=== PATIENT | female | born 1940 | race Two or more races ===

== ENCOUNTER 2017-04-06 00:37 | Inpatient (IN) | payer MEDICARE, MEDICAID ==
[~2017-04-06] VITALS: Ht 152.4 cm; Wt 124.7 kg
--- NOTE | 2017-04-06 03:30 | NUR ---
TELE/RN NOTES: PT. IS A DIRECT ADMIT FROM [place] [facility] AT 0315. A/O X 2-3. W/ LEFT SIDE FACIAL DROPPING AND SLURRED SPEECH NOTED. W/ LEFT SIDE WEAKNESS NOTED. HAS SL ON LWRIST PATENT AND INTACT W/ NO S/S OF INFECTION/INFILTRATION NOTED. W/ F/C PATENT AND INTACT DRAINING CLEAR YELLOW URINE. NOTED REDNESS UNDER THE LEFT BREAST AND PERINEAL AREA. HAS A LARGE BM LOOSE. CALLED ENERGY CONTROL OFFICER AUDREY FOR ORDERS. DENIES ANY C/O CHEST PAIN OR SOB AT THIS TIME. CALL LIGHT W/REACH. SAFETY AND ASPIRATION PRECAUTION MAINTAINED. WILL CONTINUE TO OBSERVE.
--- NOTE | 2017-04-06 03:30 | NUR ---
PT. ON TELE MONITOR W/ AFIB.
[2017-04-06 03:35] VITALS: BP 166/82
[2017-04-06 04:36] VITALS: BP 166/82
[2017-04-06] MEDS ORDERED: ZOLPIDEM TARTRATE 5 MG TABLET PO PRN (05:30)
[2017-04-06] MEDS ORDERED: ENOXAPARIN SODIUM 40 MG/0.4 ML DISP.SYRIN SQ SCH (05:30)
[2017-04-06] MEDS ORDERED: MAGNESIUM HYDROXIDE 30 ML UDC PO PRN (05:30)
[2017-04-06] MEDS ORDERED: ACETAMINOPHEN 325 MG TABLET PO PRN (05:30)
[2017-04-06] MEDS ORDERED: ONDANSETRON HCL/PF 4 MG/2 ML VIAL IVP PRN (05:30)
[2017-04-06] MEDS ORDERED: Z GUARD REMEDY 2 OZ OINT TP PRN (05:30)
[2017-04-06] MEDS ORDERED: ENOXAPARIN SODIUM 40 MG/0.4 ML DISP.SYRIN SQ ONE (05:52)
[2017-04-06] MEDS: IV NS 0.9% 1,000 ML IV PRN ×2 (06:08→21:02)
[2017-04-06] MEDS ORDERED: MORPHINE SULFATE INJ 2 MG/ML DISP.SYRIN ONE (06:15)
[2017-04-06] MEDS: MORPHINE SULFATE INJ 2 MG/ML DISP.SYRIN IV PRN ×2 (06:15→20:07)
[2017-04-06 08:00] VITALS: BP 147/65
--- NOTE | 2017-04-06 08:00 | NUR ---
TELE/RN NOTES: RECEIVED PT. IN BED A/O X 2-3. VERBALLY RESPONSIVE. ABLE TO MAKE NEEDS KNOWN. W/ LEFT SIDE WEAKNESS, FACIAL DROPPING, SLURRED SPEECH NOTED. W/ IVF GOING VIA LWRIST W/ NO S/S OF INFECTION/INFILTRATION NOTED. W/ F/C PATENT AND INTACT DRAINING VIA GRAVITY CLEAR YELLOW URINE. CALL LIGHT W/ REACH. ALL NEEDS MEET AND ATTENDED. SAFETY/ASPIRATION PRECAUTION MAINTAINED.
[2017-04-06 08:25] LABS: BASOPHILS # (AUTO) 0.1 /CMM (0.0-0.2); BASOPHILS % (AUTO) 0.8 % (0.0-2.0); EOSINOPHILS # (AUTO) 0.1 /CMM (0.0-0.7); EOSINOPHILS % (AUTO) 0.7 % (0.0-6.0); HEMATOCRIT 44 % (33-45); HEMOGLOBIN 14.9 g/dL (11.5-14.8); LYMPHOCYTES % (AUTO) 13.9 % (20.0-44.0); MEAN CORPUSCULAR HEMOGLOBIN 30 PG (26.0-33.0); MEAN CORPUSCULAR HGB CONC 34 g/dl (31.0-36.0); MEAN CORPUSCULAR VOLUME 90 fL (82-100); MONOCYTES # (AUTO) 0.3 /CMM (0.1-1.30); MONOCYTES % (AUTO) 4.7 % (2.0-12.0); NEUTROPHILS # (AUTO) 5.8 /CMM (1.8-8.9); NEUTROPHILS % (AUTO) 79.9 % (43.0-81.0); PLATELET COUNT (AUTO) 196 /CMM (150-450); RDW COEFFICIENT OF VARIATION 12.1 (11.5-15.0); WHITE BLOOD COUNT (AUTO) 7.3 K/uL (4.3-11.0)
[2017-04-06 09:07] LABS: B-TYPE NATRIURETIC PEPTIDE 1414 PG/ML (0-125); CALCIUM, SERUM 8.7 mg/dL (8.5-10.1); CARBON DIOXIDE 24 mmol/L (21-32); CHLORIDE 106 mmol/L (98-107); CREATININE 0.9 mg/dL (0.6-1.3); GLUCOSE 120 mg/dL (74-106); MAGNESIUM 1.7 mg/dL (1.8-2.4); PHOSPHORUS 2.9 mg/dL (2.5-4.9); POTASSIUM 3.6 mmol/L (3.5-5.1); SODIUM SERUM 144 mmol/L (136-145); UREA NITROGEN, BLOOD 12 mg/dL (7-18)
[2017-04-06] MEDS: CEFTRIAXONE 1 G in IV D5W 50 ML IV SCH (10:26)
--- NOTE | 2017-04-06 19:24 | NUR ---
TELE/RN NOTES: PT. IN BED RESTING NOT IN ANY DISTRESS. NO SIGNIFICANT CHANGES NOTED THIS SHIFT. REPORT GIVEN TO NEXT SHIFT NURSE.
--- NOTE | 2017-04-06 19:30 | NUR ---
Received patient in the bed.No unusual signs or symptoms observed or reported,no signs of discomfort or distress.Reported pain on left leg
--- NOTE | 2017-04-06 20:00 | NUR ---
Medicated patient with Morphine Sulfate 2m ivp,as per Md's order,no problems
[2017-04-06 22:12] VITALS: BP 125/56
[2017-04-06] MEDS: ATORVASTATIN 10 MG TABLET PO SCH (22:58)
[2017-04-07] MEDS: MORPHINE SULFATE INJ 2 MG/ML DISP.SYRIN IV PRN ×3 (01:03→04:51)
--- NOTE | 2017-04-07 01:05 | NUR ---
Reported pain and patient is restless and irritable,medicated with Morphine Sulfate 2 mg ivp,no problems.
--- NOTE | 2017-04-07 03:00 | NUR ---
no problems except for c/o pain
[2017-04-07] MEDS ORDERED: ENOXAPARIN SODIUM 80 MG/0.8 ML DISP.SYRIN SQ ONE (05:35)
[2017-04-07] MEDS ORDERED: ENOXAPARIN SODIUM 40 MG/0.4 ML DISP.SYRIN SQ ONE (05:35)
[2017-04-07] MEDS: ENOXAPARIN SODIUM 60 MG/0.6 ML DISP.SYRIN SQ SCH ×3 (05:48→21:14)
--- NOTE | 2017-04-07 06:51 | NUR ---
resting quietly,no problems
--- NOTE | 2017-04-07 07:10 | NUR ---
RN INITIAL NOTE PATIENT RECEIVED IN BED, RESTING, EASILY AROUSED. NO S/S OF PAIN OR DISCOMFORT. RESPIRATIONS ARE EVEN AND UNLABORED. NO S/S OF RESPIRATORY DISTRESS OR SOB. SKIN IS WARM AND DRY TO TOUCH. SINUS RHYTHM ON TELE MONITOR. IV SITE FLUSHED, PATENT. SAFETY PRECAUTIONS IMPLEMENTED, BED IN LOCKED, LOW POSITION WITH TWO SIDE RAILS UP. CALL LIGHT AND BELONGINGS WITHIN EASY REACH. WILL CONTINUE TO MONITOR.
[2017-04-07 08:00] VITALS: BP_SYST 133; BP_DIAS 84; BP_DIAS 89
[2017-04-07 08:35] LABS: CHOLESTEROL 191 mg/dL (<200); HDL CHOLESTEROL 39 mg/dL (40-60); LDL 123 mg/dL (0-99); TRIGLYCERIDES 82 mg/dL (30-150)
[2017-04-07] MEDS ORDERED: ENOXAPARIN SODIUM 40 MG/0.4 ML DISP.SYRIN SQ SCH (09:00)
[2017-04-07] MEDS: IV NS 0.9% 1,000 ML IV PRN (10:44)
[2017-04-07] MEDS: CEFTRIAXONE 1 G in IV D5W 50 ML IV SCH (10:44)
[2017-04-07 12:00] VITALS: BP 133/99
[2017-04-07 12:14] LABS: ALBUMIN 3.4 g/dL (3.4-5.0); BILIRUBIN,DIRECT 0.1 mg/dL (0.0-0.2); BILIRUBIN,TOTAL 0.5 mg/dL (0.2-1.0); TOTAL PROTEIN, SERUM 7.4 g/dL (6.4-8.2)
[2017-04-07] MEDS: ASPIRIN EC 325 MG TABLET.DR PO SCH (13:04)
[2017-04-07 16:00] VITALS: BP 157/76
--- NOTE | 2017-04-07 19:20 | NUR ---
TELE/RN OPENING NOTES PT RECEIVED AWAKE, RESTING COMFORTABLY IN BED. ON 2L O2 VIA NC, BREATHING EVEN AND UNLABORED. DENIES SOB OR PAIN AT THIS TIME. ON TELE MONITOR SHOWING SR WITH HR AT 77. IV TO ROBBIE RUNNING IVF ORDERED. BED IN LOW/LOCKED POSITION WITH CALL LIGHT IN REACH. SIDE RAILS UPX2 AND BED ALARM ON FOR SAFETY. WILL CONTINUE TO MONITOR
[2017-04-07 20:00] VITALS: BP 126/92
[2017-04-07] MEDS: ATORVASTATIN 10 MG TABLET PO SCH (21:13)
[2017-04-07] MEDS: HYDROCODONE/APAP 5/325MG 1 EACH TABLET PO PRN (21:24)
[2017-04-08] VITALS: BP 131/71
[2017-04-08] MEDS: IV NS 0.9% 1,000 ML IV PRN ×2 (02:10→22:17)
[2017-04-08 04:00] VITALS: BP 137/68
--- NOTE | 2017-04-08 06:54 | NUR ---
TELE/RN CLOSING NOTES PT RESTING COMFORTABLY IN BED. A/OX2-3. REMAINS ON 2L O2 VIA NC, BREATHING EVEN AND UNLABORED. DENIES SOB OR PAIN AT THIS TIME. REMAINS WITH SLURRED SPEECH AND LEFT SIDED WEAKNESS. ON TELE MONITOR SHOWING SINUS RHYTHM WITH HR 66, PVC, OCCASIONAL TRIGEMINAL AND COUPLETS. SINUS RIC WITH LOWEST HR AT 45. PANTOJA IN PLACE AND DRAINING TO GRAVITY. IV TO LEFT WRIST PATENT AND INTACT RUNNING IVF ORDERED. KEPT PT COMFORTABLE DURING SHIFT. ALL NEEDS MET. BED IN LOW/LOCKED POSITION WITH CALL LIGHT IN REACH. TURNED/REPOSITIONED Q2H AND HEELS OFFLOADED. WILL ENDORSE TO DAY SHIFT RN KADY.
[2017-04-08 08:00] VITALS: BP 150/66
--- NOTE | 2017-04-08 08:00 | NUR ---
NUCLEAR MEDICINE MEDICAL DIRECTOR AM NOTES PATIENT RECEIVED IN BED, RESTING, EASILY AROUSED. NO S/S OF PAIN OR DISCOMFORT. RESPIRATIONS ARE EVEN AND UNLABORED. NO S/S OF RESPIRATORY DISTRESS OR SOB. SKIN IS WARM AND DRY TO TOUCH. SINUS RHYTHM ON TELE MONITOR. PT IS NON COMPLIANT AT TIMES WITH REPOSITIONING.PT ALWAYS WANTS HER HOB FLAT EVEN WHILE EATING AND DRINKING WITH MEDS ONLY-FOR SWALLOW EVAL.PT ABLE TOLERATE MEDS WITH APPLE SAUCE AND EVEN TOLERATED SIPPING JUICE WITH STRAW WITHOUT COUGHING EPISODES.ASPIRATION PRECAUTIONS AND STROKE TEACHING AND ASSESSMENT DONE.PT IS NON COMPLIANT AND GETS ANGRY WITH REPOSITIONING AND RAISING HOB WITH MEALS AND MEDS ADMINISTRATION.IV SITE FLUSHED, PATENT. SAFETY PRECAUTIONS IMPLEMENTED, BED IN LOCKED, LOW POSITION WITH TWO SIDE RAILS UP. CALL LIGHT AND BELONGINGS WITHIN EASY REACH. WILL CONTINUE TO MONITOR.
[2017-04-08 08:31] LABS: BASOPHILS # (AUTO) 0.1 /CMM (0.0-0.2); BASOPHILS % (AUTO) 0.8 % (0.0-2.0); EOSINOPHILS # (AUTO) 0.1 /CMM (0.0-0.7); EOSINOPHILS % (AUTO) 1.3 % (0.0-6.0); HEMATOCRIT 41 % (33-45); HEMOGLOBIN 13.8 g/dL (11.5-14.8); LYMPHOCYTES # (AUTO) 1.5 /CMM (0.8-4.8); LYMPHOCYTES % (AUTO) 17.9 % (20.0-44.0); MEAN CORPUSCULAR HEMOGLOBIN 31 PG (26.0-33.0); MEAN CORPUSCULAR HGB CONC 34 g/dl (31.0-36.0); MEAN CORPUSCULAR VOLUME 90 fL (82-100); MONOCYTES # (AUTO) 0.7 /CMM (0.1-1.30); MONOCYTES % (AUTO) 8.3 % (2.0-12.0); NEUTROPHILS % (AUTO) 71.7 % (43.0-81.0); PLATELET COUNT (AUTO) 190 /CMM (150-450); RDW COEFFICIENT OF VARIATION 11.9 (11.5-15.0); RED BLOOD CELL COUNT(AUTO) 4.51 MIL/uL (4.0-5.2); WHITE BLOOD COUNT (AUTO) 8.4 K/uL (4.3-11.0)
[2017-04-08] MEDS: ASPIRIN EC 325 MG TABLET.DR PO SCH (09:22)
[2017-04-08] MEDS: ENOXAPARIN SODIUM 60 MG/0.6 ML DISP.SYRIN SQ SCH (09:24)
[2017-04-08 09:31] LABS: CALCIUM, SERUM 8.2 mg/dL (8.5-10.1); CARBON DIOXIDE 26 mmol/L (21-32); CHLORIDE 108 mmol/L (98-107); CREATININE 0.7 mg/dL (0.6-1.3); GLUCOSE 98 mg/dL (74-106); MAGNESIUM 1.6 mg/dL (1.8-2.4); PHOSPHORUS 2.9 mg/dL (2.5-4.9); POTASSIUM 3.4 mmol/L (3.5-5.1); SODIUM SERUM 144 mmol/L (136-145); UREA NITROGEN, BLOOD 12 mg/dL (7-18)
[2017-04-08] MEDS: CEFTRIAXONE 1 G in IV D5W 50 ML IV SCH (09:35)
[2017-04-08 12:00] VITALS: BP 144/83
[2017-04-08] MEDS: Magnesium 1GM/D5W 100ML PREMIX 100 ML IV SCH ×2 (12:42→13:33)
[2017-04-08] MEDS: HYDROCODONE/APAP 5/325MG 1 EACH TABLET PO PRN (15:33)
[2017-04-08 16:00] VITALS: BP 147/71
[2017-04-08] MEDS ORDERED: MORPHINE SULFATE INJ 4 MG/ML DISP.SYRIN IV PRN (18:00)
[2017-04-08] MEDS: RIVAROXABAN 15 MG TABLET PO SCH (18:13)
--- NOTE | 2017-04-08 19:30 | NUR ---
SWITCHBOARD MECHANIC INITIAL NOTES RECEIVED PATIENT AWAKE A/OX2, DENIES PAIN OR DISCOMFORT. DENIES SOB. ON 2LPMO2 VIA NC. ON TELE MONITOR SR. SKIN WARM AND DRY TO TOUCH. F/C PATENT AND INTACT. IVF RUNNING. HOB ELEVATED. SIDE RAILS UP AND LOCKED. BED KEPT AT LOWEST POSITION. CALL LIGHT KEPT WITHIN EASY REACH. WILL CONTINUE TO MONITOR.
[2017-04-08 20:00] VITALS: BP 138/60
[2017-04-08] MEDS ORDERED: POTASSIUM CHLORIDE 20 MEQ TAB.PRT.SR PO SCH ×2 (20:00→21:30)
[2017-04-08] MEDS: ATORVASTATIN 10 MG TABLET PO SCH (21:46)
[2017-04-09] VITALS (7 sets, daily range): BP systolic 140–159; BP diastolic 51–71
[2017-04-09] MEDS: HYDROCODONE/APAP 5/325MG 1 EACH TABLET PO PRN ×3 (00:22→22:59)
--- NOTE | 2017-04-09 07:00 | NUR ---
CONSULTING SOLUTION MANAGER OPENING NOTES PT RECEIVED RESTING COMFORTABLY IN BED. ON 2L O2 VIA NC, BREATHING EVEN AND UNLABORED. DENIES SOB OR PAIN AT THIS TIME. ON TELE MONITOR SHOWING SR WITH HR AT 60 IV TO ROBBIE RUNNING IVF ORDERED. BED IN LOW/LOCKED POSITION WITH CALL LIGHT IN REACH. SIDE RAILS UPX2 AND BED ALARM ON FOR SAFETY. WILL CONTINUE TO MONITOR
--- NOTE | 2017-04-09 08:21 | NUR ---
CIVILIAN TECHNICIAN CLOSING NOTES NO SIGNIFICANT CHANGES OVERNIGHT. NO RESPIRATORY DISTRESS NOTED. ALL NEEDS ANTICIPATED AND MET. ASPIRATION PRECAUTIONS OBSERVED. ALL DUE MEDS GIVEN. KEPT CLEAN AND DRY. IVF RUNNING. SIDE RAILS UP AND LOCKED. BED KEPT AT LOWEST POSITION. CALL LIGHT KEPT WITHIN EASY REACH. CONTINUITY OF CARE ENDORSED TO AM NURSE.
[2017-04-09] MEDS: ASPIRIN EC 325 MG TABLET.DR PO SCH (09:51)
[2017-04-09] MEDS: RIVAROXABAN 15 MG TABLET PO SCH ×2 (09:51→16:56)
[2017-04-09] MEDS: CEFTRIAXONE 1 G in IV D5W 50 ML IV SCH (11:24)
[2017-04-09] MEDS: Magnesium 1GM/D5W 100ML PREMIX 100 ML IV SCH ×2 (13:59→15:12)
--- NOTE | 2017-04-09 19:24 | NUR ---
RN NOTE PATIENT IV REMOVED PENDING DISCHARGE , HOWEVER PATIENT UNABLE TO LEAVE DUE TO ELEVATED B/P , PATIENT STATES ANXIETY ABOUT LEAVING AND ALSO STATES HER B/P GOES UP AT NIGHT . RN REPORTED THIS TO PM RN . PATIENT IS IN BED RESTING ON 2L NASAL CANULA , PANTOJA CATH REMOVED , PATIENT PLACED ON WILL CALL. CHARGE NURSE CONTACTED MD KEITH ABOUT DELAY IN DISCHARGE , RN CALLED REPORT TO STEPHON MENDOSA ACCEPTED REPORT PATIENT STABLE THROUGHOUT THE DAY ALL NEEDS ATTENDED
--- NOTE | 2017-04-09 20:00 | NUR ---
RN OPENING NOTE RECEIVED PATIENT IN BED, ALERT/ORIENTED, NO RESPIRATORY DISTRESS, WAS ENDORSED BY AM NURSE THAT PATIENT WAS NOT DISCHARGED DUE TO BP, RECHECKED BP 159/71, SO2 98% ON 2 VIA NASAL CANULA, PULSE 67, TEMP 98.0. IV WAS REMOVED BY AM NURSE, PANTOJA CATHETER WAS REMOVED BY AM NURSE DUE TO DISCHARGE, AM NURSE PROVIDED REPOST TO [facility], ALL DC PAPERWORK READY, PATIENT IS STABLE, WILL CONTINUE TO MONITOR PATIENT
[2017-04-09] MEDS: ATORVASTATIN 10 MG TABLET PO SCH (21:34)
--- NOTE | 2017-04-09 23:15 | NUR ---
SHOW WORKER NOTE AMBULANCE PICKED UP PATIENT VIA GURNEY IN A STABLE CONDITION, NO RESPIRATORY DISTRESS NOTED, VITAL SIGNS STABLE BP 145/64, PULSE 71, TEMP 97.6, RESP 18, SO2 98%, ON 2L VIA NASAL CANULA, ALERT/ORIENTED, DIAPER. PATIENT LEFT IN STABLE CONDITION, REPORT WAS PROVIDED TO [facility] AGAIN AT [phone]
== END 2017-04-09 23:20 | DRG 65 ==
LOC: TELE1 03:53
PROVIDERS: ADMIT Nurse Practitioner Acute Care; ATTEND Nurse Practitioner Acute Care
DX: I63.9 Cerebral infarction, unspecified (principal); N39.0 Urinary tract infection, site not specified; I82.411 Acute embolism and thrombosis of right femoral vein; D68.59 Other primary thrombophilia; E66.01 Morbid (severe) obesity due to excess calories; R13.10 Dysphagia, unspecified; Z68.43 Body mass index [BMI] 50.0-59.9, adult; I82.432 Acute embolism and thrombosis of left popliteal vein; Z74.09 Other reduced mobility; Z74.01 Bed confinement status; I10 Essential (primary) hypertension; E11.9 Type 2 diabetes mellitus without complications
CPT/HCPCS: 36415; 80048-TC; 80061-TC; 80076-TC; 83735-TC; 83880; 84100-TC; 85025-TC; 85652-TC; 92526; 92611-TC; 93307-TC; 93880-TC; 93970-TC; J0696; J1650; J2270; J3475; J7030; J7060

== ENCOUNTER 2017-05-08 12:24 | Inpatient (IN) | payer MEDICARE, MEDICAID ==
[~2017-05-08] VITALS: Ht 170.2 cm; Wt 122.5 kg
--- NOTE | 2017-05-08 13:07 | NUR ---
PT TO ED ROOM: [facility] PRIVATE EMT FROM [facility], EPISODE OF VOMITING LAST NIGHT. A/A/O X 2. SIDE RAILS UP. HOB ELEVATED. CONNECTED TO MONITOR. AWAITING EVALUATION BY ER PROVIDER. Addendum: 05/08/17 at 1621 by HARI REPORT GIVEN TO NURSE KATELIN ALY 306.2
[2017-05-08] MEDS ORDERED: ONDANSETRON HCL/PF 4 MG/2 ML VIAL ONE (13:12)
[2017-05-08 13:22] LABS: BASOPHILS # (AUTO) 0.1 /CMM (0.0-0.2); BASOPHILS % (AUTO) 0.4 % (0.0-2.0); HEMATOCRIT 27 % (33-45); HEMOGLOBIN 9.4 g/dL (11.5-14.8); LYMPHOCYTES # (AUTO) 2.3 /CMM (0.8-4.8); LYMPHOCYTES % (AUTO) 17.8 % (20.0-44.0); MEAN CORPUSCULAR HEMOGLOBIN 30 PG (26.0-33.0); MEAN CORPUSCULAR HGB CONC 34 g/dl (31.0-36.0); MEAN CORPUSCULAR VOLUME 89 fL (82-100); MONOCYTES # (AUTO) 1.1 /CMM (0.1-1.30); MONOCYTES % (AUTO) 8.6 % (2.0-12.0); NEUTROPHILS # (AUTO) 9.3 /CMM (1.8-8.9); NEUTROPHILS % (AUTO) 73.2 % (43.0-81.0); PLATELET COUNT (AUTO) 291 /CMM (150-450); RDW COEFFICIENT OF VARIATION 12.7 (11.5-15.0); RED BLOOD CELL COUNT(AUTO) 3.08 MIL/uL (4.0-5.2); WHITE BLOOD COUNT (AUTO) 12.8 K/uL (4.3-11.0)
[2017-05-08] MEDS ORDERED: IV NS 0.9% 1,000 ML BAG IV ONE (13:30)
[2017-05-08] MEDS ORDERED: ONDANSETRON HCL/PF 4 MG/2 ML VIAL IVP ONE (13:30)
[2017-05-08 13:34] LABS: CALCIUM, SERUM 8.7 mg/dL (8.5-10.1); CARBON DIOXIDE 25 mmol/L (21-32); CHLORIDE 103 mmol/L (98-107); CREATININE 3.1 mg/dL (0.6-1.3); GLUCOSE 128 mg/dL (74-106); POTASSIUM 5.5 mmol/L (3.5-5.1); SODIUM SERUM 138 mmol/L (136-145); UREA NITROGEN, BLOOD 51 mg/dL (7-18)
[2017-05-08 13:37] LABS: INR 2.2 (0.87-1.13)
[2017-05-08 13:40] LABS: ALANINE AMINOTRANSFERASE 19 U/L (12-78); ALBUMIN 2.7 g/dL (3.4-5.0); ALKALINE PHOSPHATASE 82 U/L (46-116); ASPARTATE AMINOTRANSFERASE 14 U/L (15-37); BILIRUBIN,DIRECT 0.3 mg/dL (0.0-0.2); BILIRUBIN,TOTAL 0.6 mg/dL (0.2-1.0); LIPASE 45 U/L (73-393); TOTAL PROTEIN, SERUM 6.7 g/dL (6.4-8.2)
[2017-05-08 13:42] LABS: TROPONIN I 0.096 ng/mL (0.00-0.056)
[2017-05-08] MEDS ORDERED: ONDA4TAB5 PO (13:47)
[2017-05-08] MEDS ORDERED: SENN-167 PO (13:47)
[2017-05-08] MEDS ORDERED: MULT-659 PO (13:47)
[2017-05-08] MEDS ORDERED: MAGN400O6 PO (13:47)
[2017-05-08] MEDS ORDERED: HYDR-3974 PO (13:47)
[2017-05-08] MEDS ORDERED: OMEG-167 PO (13:47)
[2017-05-08] MEDS ORDERED: ASPI-1152 PO (13:47)
[2017-05-08] MEDS ORDERED: ATOR10TA PO (13:47)
[2017-05-08] MEDS ORDERED: ACET-868 PO (13:47)
[2017-05-08] MEDS ORDERED: DOCU-141 PO (13:47)
[2017-05-08] MEDS ORDERED: ZOLP5TAB2 PO (13:47)
[2017-05-08] MEDS ORDERED: ACET-2605 PO (13:47)
--- NOTE | 2017-05-08 14:15 | NUR ---
URINE SAMPLE COLLECTED VIA STRAIGHT STERILE FOLE AND SEND TO LAB
[2017-05-08 14:31] LABS: APPEARANCE,URINE Turbid (CLEAR); BILIRUBIN,URINE MODERATE (NEGATIVE); BLOOD, URINE Moderate Ery/uL (NEGATIVE); COLOR,URINE Yellow (YELLOW); KETONES,URINE 15 (NEGATIVE); LEUKOCYTE ESTERASE ,URINE Large (NEGATIVE); NITRITE, URINE Negative (NEGATIVE); PROTEIN,URINE >=300 mg/dl (NEGATIVE); UGLUCOSE Negative (NEGATIVE)
[2017-05-08 14:41] LABS: BACTERIA,URINE Many /HPF (None Seen); SQUAMOUS EPITHELIAL CELL,UR Few /HPF (None Seen); WBC,URINE TOO NUMEROUS TO COUN /HPF (0-3)
[2017-05-08] MEDS ORDERED: ASPIRIN 81 MG TAB.CHEW PO ONE (15:00)
[2017-05-08] MEDS ORDERED: LEVOFLOXACIN 500 MG /D5W 100ML 500 MG/100 ML PIGGYBACK IV ONE (15:00)
[2017-05-08] MEDS ORDERED: ASPIRIN 81 MG TAB.CHEW ONE (15:11)
[2017-05-08] MEDS ORDERED: LEVOFLOXACIN 750 MG /D5W 150ML 150 ML IV ONE (15:11)
[2017-05-08] MEDS ORDERED: LEVOFLOXACIN 500 MG /D5W 100ML 100 ML IV ONE (15:20)
[2017-05-08 16:00] VITALS: BP 96/48
[2017-05-08] MEDS ORDERED: VANCOMYCIN 1 GM in IV D5W 250 ML IV ONE (16:00)
[2017-05-08] MEDS ORDERED: ACETAMINOPHEN 650 MG/20.3 ML UDC NG PRN (16:00)
[2017-05-08] MEDS ORDERED: MORPHINE SULFATE INJ 2 MG/ML DISP.SYRIN IV PRN (16:00)
[2017-05-08] MEDS ORDERED: LORAZEPAM INJ 2 MG/ML VIAL IVP PRN (16:00)
--- NOTE | 2017-05-08 16:40 | NUR ---
FINISHING SUPERVISORCHIROPRACTIC CARE NOTE PATIENT RECEIVED RESTING IN BED. VITALS STABLE, RESPIRATIONS EVEN AND UNLABORED WITH OXYGEN AT 3L/MIN VIA NASAL CANNULA. PATIENT HAS NO COMPLAINTS OF PAIN OR DISTRESS. NO SIGNS OR SYMPTOMS OF PAIN OR DISTRESS. PATIENT ON TELE WITH SINUS RHYTHM. PATIENT HAS LEFT AC 20G IV PATENT AND FLUSHES EASILY, NO SIGNS OF COMPLICATIONS. ALSO HAS RIGHT AC 20G IV PATENT AND FLUSHES EASILY, NO SIGNS OF COMPLICATIONS. BED IN LOW POSITION AND LOCKED WITH SIDE RAILS UP X 2. BED ALARM ON AND CALL LIGHT WITHIN REACH.
[2017-05-08] MEDS ORDERED: FEE PK DOSING 1 MIN EA MC ONE (17:57)
[2017-05-08] MEDS ORDERED: PIPERACILLIN /TAZOBACTAM 3.375 G in IV D5W 50 ML IV SCH (18:00)
[2017-05-08] MEDS ORDERED: SODIUM POLYSTYRENE SULFONATE 15 G/60 ML BOTTLE PO ONE (18:00)
[2017-05-08 18:53] LABS: IRON, SERUM 60 ug/dl (50-175); TOTAL IRON BINDING CAPACITY 191 ug/dl (250-450)
--- NOTE | 2017-05-08 19:00 | NUR ---
PT LYING IN BED ALWAYS WANTING HER HOB LOW INSPITE OF EXPLAINING TO HER THAT HER HEAD SHOULD BE UP SINCE SHE FEELS NAUSEOUS.PT IS NON COMPLIANT AND IRRITABLE.ALSO PT KEEPS INSISTING THAT SHE HATES PUREED AND WANTS REGULAR FOOD.PT DENTURES ARE IN THE SNF.EXPLAINED TO PT THAT SHE DOESN'T HAVE DENTURES AND IS NOT SAFE FOR HER EAT REGULAR FOOD HAVING THE RISK OF CHOKING.ENDORSED TO NIGHT NURSE CARE.CALL LIGHT PLACED WITHIN REACH.
--- NOTE | 2017-05-08 19:20 | NUR ---
TELE/RN OPENING NOTES PT RECEIVED RESTING COMFORTABLY IN BED. A/OX1. ON 2L O2 VIA NC, BREATHING EVEN AND UNLABORED. DENIES SOB, PAIN AND N/V. ON TELE MONITOR SHOWING SINUS RHYTHM WITH HR74. IV TO LAC PATENT AND INTACT. BED IN LOW/LOCKED POSITION WITH CALL LIGHT IN REACH. SIDE RAILS UPX2. BED ALARM ON FOR SAFETY. WILL CONTINUE TO MONITOR
--- NOTE | 2017-05-08 19:52 | NUR ---
TELE/RN NOTES NOTIFIED DR. COLON OF PT'S LATEST LACTIC ACID OF 2.7 UP FROM 2.6. PT RECEIVED 1L OF NS IN THE ER. ASKED IF SHE WANTED ADDITIONAL IVF. ORDERED NS @ 75ML/HR. ORDERS NOTED, WILL CARRY OUT.
[2017-05-08 20:00] VITALS: BP 97/52
[2017-05-08] MEDS ORDERED: VANCOMYCIN 1.5 GM in IV D5W 500ml IV ONE (20:00)
[2017-05-08] MEDS: PIPERACILLIN /TAZOBACTAM 2.25 G in IV D5W 50 ML IV SCH (21:00)
[2017-05-08] MEDS: IV NS 0.9% 1,000 ML IV PRN (21:33)
[2017-05-09] VITALS: BP 99/49
[2017-05-09 01:00] VITALS: BP_SYST 107
--- NOTE | 2017-05-09 06:55 | NUR ---
TELE/RN CLOSING NOTES PT AWAKE, A/OX1. ON 2L O2 VIA NC, BREATHING EVEN AND UNLABORED. DENIES SOB, PAIN AND NAUSEA AT THIS TIME. IV TO RAC PATENT AND INTACT RUNNING IVF ORDERED. ON TELE MONITOR SHOWING NSR. NO SIGNIFICANT CHANGES OVERNIGHT. TURNED/REPOSITIONED PT Q2H. MADE PT COMFORTABLE, ALL NEEDS MET. BED REMAINS IN LOW/LOCKED POSITION WITH CALL LIGHT IN REACH. AND SIDE RAILS UPX2. WILL ENDORSE TO DAY SHIFT RN KADY.
--- NOTE | 2017-05-09 07:25 | NUR ---
RN NOTES RECEIVED PATIENT AWAKE ALERT AND VERBALLY RESPONSIVE, ABLE TO MAKE NEEDS KNOWN, NOTED WITH PERIODS OF CONFUSION. RESPIRATIONS EVEN AND UNLABORED, DENIES ANY PAIN OR DISCOMFORT AT THIS TIME. IV ACCESS PATENT AND INTACT NO REDNESS OR INFILTRATION NOTED. SAFETY MEASURES IN PLACE, KEPT CLEAN DRY AND COMFORTABLE.
[2017-05-09 07:35] LABS: BASOPHILS % (AUTO) 0.4 % (0.0-2.0); EOSINOPHILS % (AUTO) 0.6 % (0.0-6.0); HEMATOCRIT 21 % (33-45); HEMOGLOBIN 7.2 g/dL (11.5-14.8); LYMPHOCYTES # (AUTO) 1.4 /CMM (0.8-4.8); LYMPHOCYTES % (AUTO) 16.9 % (20.0-44.0); MEAN CORPUSCULAR HEMOGLOBIN 31 PG (26.0-33.0); MEAN CORPUSCULAR HGB CONC 34 g/dl (31.0-36.0); MEAN CORPUSCULAR VOLUME 91 fL (82-100); MONOCYTES # (AUTO) 0.6 /CMM (0.1-1.30); MONOCYTES % (AUTO) 7.4 % (2.0-12.0); NEUTROPHILS % (AUTO) 74.7 % (43.0-81.0); PLATELET COUNT (AUTO) 180 /CMM (150-450); RDW COEFFICIENT OF VARIATION 13.9 (11.5-15.0); RED BLOOD CELL COUNT(AUTO) 2.33 MIL/uL (4.0-5.2)
[2017-05-09 07:48] LABS: TROPONIN I 0.018 ng/mL (0.00-0.056)
[2017-05-09] MEDS: PIPERACILLIN /TAZOBACTAM 2.25 G in IV D5W 50 ML IV SCH ×3 (07:52→20:43)
[2017-05-09 07:59] LABS: ALANINE AMINOTRANSFERASE 17 U/L (12-78); ALBUMIN 2.2 g/dL (3.4-5.0); ALKALINE PHOSPHATASE 69 U/L (46-116); ASPARTATE AMINOTRANSFERASE 18 U/L (15-37); BILIRUBIN,TOTAL 0.7 mg/dL (0.2-1.0); CALCIUM, SERUM 7.6 mg/dL (8.5-10.1); CARBON DIOXIDE 25 mmol/L (21-32); CHLORIDE 104 mmol/L (98-107); CREATINE KINASE MB 0.3 ng/mL (0-3.6); CREATININE 3.2 mg/dL (0.6-1.3); GLUCOSE 109 mg/dL (74-106); POTASSIUM 4.7 mmol/L (3.5-5.1); SODIUM SERUM 139 mmol/L (136-145); TOTAL PROTEIN, SERUM 5.8 g/dL (6.4-8.2); UREA NITROGEN, BLOOD 54 mg/dL (7-18)
[2017-05-09 08:00] VITALS: BP 116/50
[2017-05-09 08:03] LABS: INR 2.33 (0.87-1.13)
[2017-05-09] MEDS: PANTOPRAZOLE 40 MG VIAL IV SCH (08:52)
[2017-05-09] MEDS: ATORVASTATIN 10 MG TABLET PO SCH (08:52)
[2017-05-09] MEDS: ASPIRIN 81 MG TAB.CHEW PO SCH (09:00)
--- NOTE | 2017-05-09 09:35 | NUR ---
RN NOTES PATIENT'S ASPIRIN HELD NOTED WITH HGB DROP FROM 9.4 TO 7.2 WILL NOTIFY MD AND CONTINUE TO MONITOR
--- NOTE | 2017-05-09 10:02 | NUR ---
DOMONIQUE received a call from pt's sister Mary Guzman stating she would like to update DOMONIQUE on pt's daughter Mary Bermudez's contact information. Mary Bermudez, pt's daughter can be reached at . Pt's sister Mary Guzman can be reached at and . Addendum: 05/09/17 at 1007 by KEYA YOUSSEF DOMONIQUE updated case picker Michel with the updated phone numbers.
[2017-05-09] MEDS: Z GUARD REMEDY 2 OZ OINT TP SCH ×2 (15:29→20:43)
[2017-05-09 16:00] VITALS: BP 114/50
[2017-05-09] MEDS: IV NS 0.9% 1,000 ML IV PRN (16:17)
[2017-05-09] MEDS ORDERED: HYDROMORPHONE INJ 0.5 MG/0.5 ML SYRINGE IV PRN (17:00)
[2017-05-09 17:25] LABS: APPEARANCE,URINE SL CLOUDY (CLEAR); BILIRUBIN,URINE NEGATIVE (NEGATIVE); BLOOD, URINE NEGATIVE Ery/uL (NEGATIVE); COLOR,URINE YELLOW (YELLOW); KETONES,URINE NEGATIVE (NEGATIVE); LEUKOCYTE ESTERASE ,URINE 2+ (NEGATIVE); NITRITE, URINE NEGATIVE (NEGATIVE); PROTEIN,URINE TRACE mg/dl (NEGATIVE); UGLUCOSE NEGATIVE (NEGATIVE)
[2017-05-09 17:30] LABS: BACTERIA,URINE Rare /HPF (None Seen); SQUAMOUS EPITHELIAL CELL,UR Moderate /HPF (None Seen); WBC,URINE 51-80 /HPF (0-3)
[2017-05-09 17:36] LABS: CREATININE, URINE 141.1 MG/DL (30.0-125.0)
[2017-05-09 17:42] LABS: EOSINOPHIL,URINE Rare
[2017-05-09] MEDS: LACTOBACILLUS RHAMNOSUS GG 1 EACH CAP.SPRINK PO SCH (18:46)
--- NOTE | 2017-05-09 19:20 | NUR ---
RN NOTES RECEIVED PATIENT AWAKE ALERT AND VERBALLY RESPONSIVE, ABLE TO MAKE NEEDS KNOWN, NOTED WITH PERIODS OF CONFUSION. RESPIRATIONS EVEN AND UNLABORED, DENIES ANY PAIN OR DISCOMFORT AT THIS TIME. IV ACCESS PATENT AND INTACT NO REDNESS OR INFILTRATION NOTED. SAFETY MEASURES IN PLACE, KEPT CLEAN DRY AND COMFORTABLE,ENDORSED TO NEXT SHIFT FOR CONTINUITY OF CARE
--- NOTE | 2017-05-09 19:30 | NUR ---
RN INITIAL NOTES RECEIVED PT LAYING IN BED W/ HOB ELEVATED. AWAKE, ALERT AND RESPONSIVE W/ EPISODES OF CONFUSION. RESPIRATIONS ARE EVEN AND UNLABORED, NOT IN ANY ACUTE DISTRESS NOTED. DENIES ANY PAIN AT THIS TIME. IV ACCESS PATENT AND INTACT, DRESSING KEPT CLEAN AND DRY. SAFETY MEASURES IN PLACE. INSTRUCTED PT TO USE CALL LIGHT WHEN ASSISTANCE IS NEEDED, CALL LIGHT IS LEFT WITHIN REACH. WILL CONTINUE TO MONITOR THROUGHOUT SHIFT.
[2017-05-09 20:00] VITALS: BP 119/55
[2017-05-10] VITALS: BP 100/51
[2017-05-10 04:00] VITALS: BP 98/43
[2017-05-10] MEDS: PIPERACILLIN /TAZOBACTAM 2.25 G in IV D5W 50 ML IV SCH ×3 (04:22→20:58)
[2017-05-10 06:03] LABS: BILIRUBIN,URINE NEGATIVE (NEGATIVE); BLOOD, URINE 3+ Ery/uL (NEGATIVE); COLOR,URINE YELLOW (YELLOW); KETONES,URINE NEGATIVE (NEGATIVE); LEUKOCYTE ESTERASE ,URINE 2+ (NEGATIVE); NITRITE, URINE NEGATIVE (NEGATIVE); PH,URINE 5.5 (5.0-8.0); PROTEIN,URINE 1+ mg/dl (NEGATIVE); UGLUCOSE NEGATIVE (NEGATIVE)
[2017-05-10 06:08] LABS: APPEARANCE,URINE CLOUDY (CLEAR)
[2017-05-10 06:09] LABS: CREATININE, URINE 106.8 MG/DL (30.0-125.0); URINE TOTAL PROTEIN 62.8 mg/dL (0-11.9)
[2017-05-10] MEDS: IV NS 0.9% 1,000 ML IV PRN (06:17)
[2017-05-10 06:19] LABS: BACTERIA,URINE 3+ /HPF (None Seen); RBC,URINE 21-50 /HPF (0-2); WBC,URINE TOO NUMEROUS TO COUN /HPF (0-3)
[2017-05-10 06:20] LABS: SQUAMOUS EPITHELIAL CELL,UR Moderate /HPF (None Seen)
--- NOTE | 2017-05-10 06:29 | NUR ---
RN CLOSING NOTES ALL DUE MEDS GIVEN, NEEDS MET AND RENDERED. PT REMAINS A/O X1, REMAINS AFEBRILE. RESPIRATIONS ARE EVEN AND UNLABORED, NOT IN ANY ACUTE DISTRESS NOTED. DENIES ANY PAIN THROUGHOUT SHIFT. NO FACIAL GRIMACING OR MOANING NOTED. IV TO RAC INTACT AND PATENT, DRESSING KEPT CLEAN AND DRY. PANTOJA CATH INTACT, TUBING FREE OF KINKS AND DRAINING FREELY. NOTED W/ DARK COLORED YELLOW URINE. DENIES BLADDER DISCOMFORT. URINE COLLECTED THIS AM PER ORDERS. PT REPOSITIONED Q2H TO PREVENT FURTHER SKIN INJURIES AND BILATERAL HEELS ARE OFFLOADED. SAFETY MEASURES IN PLACE. INSTRUCTED PT TO USE CALL LIGHT WHEN ASSISTANCE IS NEEDED, CALL LIGHT LEFT WITHIN REACH. WILL ENDORSE TO NEXT SHIFT FOR CONTINUITY OF CARE.
[2017-05-10 08:00] VITALS: BP 132/61
--- NOTE | 2017-05-10 08:00 | NUR ---
iv removed by night nurse,several unsuccessful attempts at reinsertion,so unable to give iv meds.supervisor propellant charge loading to get midline placement.
[2017-05-10 08:30] LABS: ALANINE AMINOTRANSFERASE 15 U/L (12-78); ALBUMIN 2.1 g/dL (3.4-5.0); ALKALINE PHOSPHATASE 65 U/L (46-116); ASPARTATE AMINOTRANSFERASE 18 U/L (15-37); BILIRUBIN,TOTAL 0.7 mg/dL (0.2-1.0); CALCIUM, SERUM 7.6 mg/dL (8.5-10.1); CARBON DIOXIDE 23 mmol/L (21-32); CHLORIDE 109 mmol/L (98-107); CREATININE 2.7 mg/dL (0.6-1.3); GLUCOSE 94 mg/dL (74-106); MAGNESIUM 1.9 mg/dL (1.8-2.4); PHOSPHORUS 4.8 mg/dL (2.5-4.9); POTASSIUM 4.8 mmol/L (3.5-5.1); SODIUM SERUM 142 mmol/L (136-145); TOTAL PROTEIN, SERUM 5.4 g/dL (6.4-8.2); UREA NITROGEN, BLOOD 55 mg/dL (7-18)
[2017-05-10 08:56] LABS: EOSINOPHILS # (AUTO) 0.1 /CMM (0.0-0.7); LYMPHOCYTES # (AUTO) 1.2 /CMM (0.8-4.8); PLATELET COUNT (AUTO) 198 /CMM (150-450); RDW COEFFICIENT OF VARIATION 13.6 (11.5-15.0); WHITE BLOOD COUNT (AUTO) 7.1 K/uL (4.3-11.0)
[2017-05-10 08:58] LABS: BASOPHILS % (AUTO) 0.4 % (0.0-2.0); EOSINOPHILS % (AUTO) 0.9 % (0.0-6.0); HEMATOCRIT 21 % (33-45); LYMPHOCYTES % (AUTO) 16.5 % (20.0-44.0); MEAN CORPUSCULAR HEMOGLOBIN 31 PG (26.0-33.0); MEAN CORPUSCULAR HGB CONC 34 g/dl (31.0-36.0); MEAN CORPUSCULAR VOLUME 91 fL (82-100); MONOCYTES # (AUTO) 0.3 /CMM (0.1-1.30); MONOCYTES % (AUTO) 4.9 % (2.0-12.0); NEUTROPHILS # (AUTO) 5.5 /CMM (1.8-8.9); NEUTROPHILS % (AUTO) 77.3 % (43.0-81.0); RED BLOOD CELL COUNT(AUTO) 2.27 MIL/uL (4.0-5.2)
[2017-05-10 09:05] LABS: TROPONIN I < 0.017 ng/mL (0.00-0.056)
[2017-05-10 09:36] LABS: EOSINOPHIL,URINE None Seen
[2017-05-10] MEDS: LACTOBACILLUS RHAMNOSUS GG 1 EACH CAP.SPRINK PO SCH ×2 (09:52→16:19)
[2017-05-10] MEDS: ASPIRIN 81 MG TAB.CHEW PO SCH (09:52)
[2017-05-10] MEDS: ATORVASTATIN 10 MG TABLET PO SCH (09:52)
[2017-05-10 09:53] LABS: CREATINE KINASE, TOTAL 30 U/L (26-192)
[2017-05-10] MEDS: Z GUARD REMEDY 2 OZ OINT TP SCH ×2 (09:53→20:58)
--- NOTE | 2017-05-10 11:30 | NUR ---
dr. spicer,dr. jimenez, in to see pt.relatives calling to check on pt. f/c to gravity drainage,with good output.
--- NOTE | 2017-05-10 11:45 | NUR ---
dr. selby aware of hgb and hct.
--- NOTE | 2017-05-10 12:20 | NUR ---
urine spec. sent for culture from f/c.
--- NOTE | 2017-05-10 15:30 | NUR ---
RN NOTES RECEIVED PT FROM JEANETTE ARIAS. PT IS STABLE, VITAL SIGNS WNL. ON RA, RESPIRATIONS ARE EVEN AND UNLABORED. SAFETY MEASURES IN PLACE. WILL CONTINUE TO MONITOR.
[2017-05-10] MEDS: PANTOPRAZOLE 40 MG VIAL IV SCH (15:34)
[2017-05-10 15:59] VITALS: BP 124/69
[2017-05-10 16:00] VITALS: BP 131/94
[2017-05-10] MEDS: VANCOMYCIN 1.25 GM in IV D5W 500 ML IV SCH (16:19)
[2017-05-10 17:58] LABS: THYROID STIMULATING HORMONE 3.857 uIU/mL (0.358-3.74)
--- NOTE | 2017-05-10 18:29 | NUR ---
RN NOTES PT IS RESTING COMFORTABLY IN BED. PT ON 2L O2, RESPIRATIONS ARE EVEN AND UNLABORED. IV ON RAC INTACT AND RUNNING ANTIBIOTIC. PANTOJA CATHETER IS INTACT AND DRAINING, OUTPUT 400ML. ALL MEDS WERE GIVEN AND PT NEEDS MET. SAFETY MEASURES ARE IN PLACE, CALL LIGHT IS IN REACH. WILL ENDORSE TO PLAYER DEVELOPMENT MANAGER RN FOR CONTINUITY OF CARE.
--- NOTE | 2017-05-10 19:30 | NUR ---
RN NOTES RECEIVED PT. AWAKE ON BED, A/OX2, DENIES PAIN, NO SOB, CALL LIGHT WITHIN REACH, SIDERAILSUPX2 CONTINUE TO MONITOR
[2017-05-10 20:00] VITALS: BP 112/54
--- NOTE | 2017-05-10 20:10 | NUR ---
RN NOTES MID LINE NURSE CAME AND INSERTED ON THE RIGHT UPPER ARM
[2017-05-11] VITALS (11 sets, daily range): BP systolic 118–138; BP diastolic 53–82
[2017-05-11] MEDS: PIPERACILLIN /TAZOBACTAM 2.25 G in IV D5W 50 ML IV SCH (05:29)
[2017-05-11] MEDS: IV NS 0.9% 1,000 ML IV PRN (06:11)
--- NOTE | 2017-05-11 06:31 | NUR ---
RN NOTES AWAKE, MORNING CARE RENDERED, MIDLINE IN PLACE, DENIES PAIN, NO SOB, CALL LIGHT WITHIN REACH, SIDERAILSUPX2, PT. NEEDS ATTENDED
[2017-05-11 06:36] LABS: CALCIUM, SERUM 7.1 mg/dL (8.5-10.1); CARBON DIOXIDE 25 mmol/L (21-32); CHLORIDE 105 mmol/L (98-107); CREATININE 1.9 mg/dL (0.6-1.3); GLUCOSE 97 mg/dL (74-106); MAGNESIUM 1.8 mg/dL (1.8-2.4); PHOSPHORUS 3.8 mg/dL (2.5-4.9); POTASSIUM 4.1 mmol/L (3.5-5.1); SODIUM SERUM 139 mmol/L (136-145); UREA NITROGEN, BLOOD 44 mg/dL (7-18)
[2017-05-11 06:37] LABS: BASOPHILS % (AUTO) 0.6 % (0.0-2.0); EOSINOPHILS # (AUTO) 0.1 /CMM (0.0-0.7); EOSINOPHILS % (AUTO) 1.6 % (0.0-6.0); LYMPHOCYTES # (AUTO) 1.1 /CMM (0.8-4.8); LYMPHOCYTES % (AUTO) 18.1 % (20.0-44.0); MEAN CORPUSCULAR HEMOGLOBIN 31 PG (26.0-33.0); MEAN CORPUSCULAR HGB CONC 34 g/dl (31.0-36.0); MEAN CORPUSCULAR VOLUME 91 fL (82-100); MONOCYTES # (AUTO) 0.5 /CMM (0.1-1.30); MONOCYTES % (AUTO) 7.6 % (2.0-12.0); NEUTROPHILS # (AUTO) 4.4 /CMM (1.8-8.9); NEUTROPHILS % (AUTO) 72.1 % (43.0-81.0); PLATELET COUNT (AUTO) 181 /CMM (150-450); RDW COEFFICIENT OF VARIATION 13.7 (11.5-15.0); WHITE BLOOD COUNT (AUTO) 6.1 K/uL (4.3-11.0)
[2017-05-11 06:54] LABS: HEMATOCRIT 18 % (33-45); HEMOGLOBIN 6.2 g/dL (11.5-14.8)
--- NOTE | 2017-05-11 07:28 | NUR ---
RN NOTES INFORMED TO DR. COLON REGARDING PT. H&h 6.05/25. DR. COLON ORDERED I UNIT PRBC, ORDER NOTED AND CARRIED OUT
--- NOTE | 2017-05-11 07:30 | NUR ---
MS RN OPENING NOTES RECEIVED PT FROM NIGHTSHIFT NURSE IN STABLE CONDITION. NO SOB OR SIGNS OF DISTRESS NOTED. BREATHING IS EVEN AND UNLABORED. PT IS ON 2L AND SATING WELL. SHE DENIES ANY PAIN, DIZZINESS, OR DISCOMFORT AT THE MOMENT. H/H NOTED TO BE CRITICALLY LOW. NIGHTSHIFT NURSE NOTIFIED DR. COLON WHO ORDERED 1UNIT OF PRBC. WAITING FOR TYPE AND SCREEN ALONG WITH BLOOD TO BE PREPARED. IV NOTED TO BE PATENT AND INTACT INFUSING NS ORDERED. PT TOLERATING INFUSION WELL. NO REDNESS OR SIGNS OF INFILTRATION NOTED. BED IN LOW LOCKED POSITION, SIDE RAILS UP X3, CALL LIGHT WITHIN REACH. WILL CONTINUE TO MONITOR.
[2017-05-11 10:02] LABS: BAND % (MANUAL) 1 % (0.0-5.0); BASOPHILS % (MANUAL) 0 % (0.0-2.0); EOSINOPHILS % (MANUAL) 2 % (0-4); LYMPHOCYTES % (MANUAL) 24 % (16-48); MONOCYTES % (MANUAL) 3 % (0-11.0); NEUTROPHILS % (MANUAL) 70 (42-76)
--- NOTE | 2017-05-11 10:11 | NUR ---
MS RN NOTES PT UNABLE TO SIGNS CONSENT FOR BLOOD DUE TO MENTAL STATUS. JOSIAH RAM (PT'S SON) WAS CALLED TO GET CONSENT. DAHIANA A FELLOW RN CONFIRMED MR. RAM'S TELEPHONE CONSENT AND SIGNED RESPECTIVE PAPERWORK ALONG WITH MYSELF. WILL ADMINISTER BLOOD TRANSFUSION ONCE THE BLOOD IS READY.
[2017-05-11] MEDS: Z GUARD REMEDY 2 OZ OINT TP SCH ×2 (10:24→20:11)
[2017-05-11] MEDS: PANTOPRAZOLE 40 MG VIAL IV SCH (10:24)
[2017-05-11] MEDS: FERROUS SULFATE (325 MG) 325 MG/TAB TABLET PO SCH ×2 (10:25→16:21)
[2017-05-11] MEDS: DOCUSATE SODIUM 250 MG CAPSULE PO SCH ×2 (10:25→16:21)
[2017-05-11] MEDS: LACTOBACILLUS RHAMNOSUS GG 1 EACH CAP.SPRINK PO SCH ×2 (10:26→16:21)
[2017-05-11] MEDS: ATORVASTATIN 10 MG TABLET PO SCH (10:26)
[2017-05-11] MEDS: ASPIRIN 81 MG TAB.CHEW PO SCH (10:26)
--- NOTE | 2017-05-11 12:29 | NUR ---
MS RN BLOOD TRANSFUSION NOTES BLOOD TRANSFUSION BEGAN @ 1218 PER PROTOCOL. BLOOD VERIFIED BY ROMAN Chou FELLOW RN PRIOR TO TRANSFUSION. PT'S VITAL SIGNS BEFORE TRANSFUSION ARE FOLLOWED: BP 131/51 P 60 TEMP 97.5 R 18 O2 SAT 100%. BLOOD INFUSING AT 75ML/HR. PT TOLERATING INFUSION WELL AT THIS TIME. NO SOB, COMPLAINTS OF FLANK PAIN, DIZZINESS, CHILLS, OR FEELINGS OF DISCOMFORT EXPRESSED. URINE FROM PANTOJA CATHETER NOTED TO BE CLEAR AND YELLOW. WILL CONTINUE TO CLOSELY MONITOR PT.
[2017-05-11 12:42] LABS: IRON, SERUM 25 ug/dl (50-175); TOTAL IRON BINDING CAPACITY 149 ug/dl (250-450)
[2017-05-11 16:22] LABS: HEMOGLOBIN 7.3 g/dL (11.5-14.8)
--- NOTE | 2017-05-11 18:09 | NUR ---
MS RN NOTES PT HAD A SMALL EPISODE OF EMESIS AFTER CONSUMPTION OF DINNER. NO ANTIEMETICS ORDERED FOR PT. DR. COLON NOTIFIED. CURRENTLY AWAITING TO HEAR BACK.
--- NOTE | 2017-05-11 18:57 | NUR ---
MS RN NOTES DR COLON GAVE AN ORDER FOR ZOFRAN 4MG IV Q6HR. PT'S EMESIS HAS CEASED AND DENIES ANY NAUSEA. WILL INPUT ORDER
--- NOTE | 2017-05-11 19:23 | NUR ---
MS RN CLOSING NOTES PT REMAINS STABLE. ALL NEEDS MET DURING SHIFT AND ORDERS CARRIED OUT ACCORDINGLY. ALL DUE MEDS GIVEN. WOUND AND SKIN CARE RENDERED. VITALS REMAINED STABLE THROUGHOUT SHIFT AND POST TRANSFUSION. WILL ENDORSE TO NIGHTSHIFT NURSE FOR KADY
[2017-05-11] MEDS ORDERED: ONDANSETRON HCL/PF 4 MG/2 ML VIAL IV PRN (19:30)
--- NOTE | 2017-05-11 19:30 | NUR ---
RN NOTES RECEIVED PT. AWAKE ON BED, A/OX1, MIDLINE IN PLACE, F/C DRAINING CLEAR YELLOW URINE, CALL LIGHT WITHIN REACH, SIDERAILSUPX2, CONTINUE TO MONITOR
[2017-05-11] MEDS: MEROPENEM 500 MG in IV NS 0.9% 50 ML IV SCH (20:08)
[2017-05-11] MEDS: VANCOMYCIN 1.25 GM in IV D5W 500 ML IV SCH (21:15)
--- NOTE | 2017-05-11 22:08 | NUR ---
RN NOTES PT, IS COMPLAINING OF CONSTIPATION. GOT AN ORDER FROM DR. KEITH OF MILK OF MAGNESIA PO PRN, ORDER NOTED AND CARRIED OUT
[2017-05-11] MEDS ORDERED: MAGNESIUM HYDROXIDE 30 ML UDC PO PRN (22:30)
--- NOTE | 2017-05-12 07:00 | NUR ---
RN NOTES AWAKE,MORNING CARE RENDERED, MIDLINE IN PLACE, CALL LIGHT WITHIN REACH, SIDERAILSUPX2, PT. NEEDS ATTENDED
[2017-05-12] MEDS: FERROUS SULFATE (325 MG) 325 MG/TAB TABLET PO SCH ×2 (08:10→16:35)
[2017-05-12] MEDS: ATORVASTATIN 10 MG TABLET PO SCH (08:10)
[2017-05-12] MEDS: DOCUSATE SODIUM 250 MG CAPSULE PO SCH ×2 (08:10→16:35)
[2017-05-12] MEDS: MEROPENEM 500 MG in IV NS 0.9% 50 ML IV SCH (08:10)
[2017-05-12] MEDS: PANTOPRAZOLE 40 MG VIAL IV SCH (08:10)
[2017-05-12 08:11] VITALS: BP 102/49
[2017-05-12] MEDS: LACTOBACILLUS RHAMNOSUS GG 1 EACH CAP.SPRINK PO SCH ×2 (08:11→16:34)
--- NOTE | 2017-05-12 08:22 | NUR ---
MS RN NOTES PATIENT IN BED, AWAKE. A/O X2, ON OXYGEN AT 2L/MIN VIA NC, NO SOB, BREATHING NON LABORED. MELBA MIDLINE PATENT AND INTACT, IVF NS INFUSING AT 70ML/HR, DENIES ANY PAIN. PANTOJA CATH INTACT, DRAINING TO GRAVITY, URINE YELLOW WITH MINIMAL SEDIMENTS. CALL LIGHT WITHIN REACH. ON CONTACT ISOLATION ESBL URINE. WILL CONT TO MONITOR.
[2017-05-12 09:31] LABS: BASOPHILS % (AUTO) 0.3 % (0.0-2.0); EOSINOPHILS # (AUTO) 0.1 /CMM (0.0-0.7); EOSINOPHILS % (AUTO) 1.5 % (0.0-6.0); HEMATOCRIT 22 % (33-45); HEMOGLOBIN 7.5 g/dL (11.5-14.8); LYMPHOCYTES # (AUTO) 0.9 /CMM (0.8-4.8); LYMPHOCYTES % (AUTO) 15.6 % (20.0-44.0); MEAN CORPUSCULAR HEMOGLOBIN 30 PG (26.0-33.0); MEAN CORPUSCULAR HGB CONC 34 g/dl (31.0-36.0); MEAN CORPUSCULAR VOLUME 90 fL (82-100); MONOCYTES # (AUTO) 0.4 /CMM (0.1-1.30); MONOCYTES % (AUTO) 6.8 % (2.0-12.0); NEUTROPHILS # (AUTO) 4.4 /CMM (1.8-8.9); NEUTROPHILS % (AUTO) 75.8 % (43.0-81.0); PLATELET COUNT (AUTO) 186 /CMM (150-450); RDW COEFFICIENT OF VARIATION 14.5 (11.5-15.0); RED BLOOD CELL COUNT(AUTO) 2.47 MIL/uL (4.0-5.2); WHITE BLOOD COUNT (AUTO) 5.8 K/uL (4.3-11.0)
[2017-05-12 09:53] LABS: CALCIUM, SERUM 7.5 mg/dL (8.5-10.1); CARBON DIOXIDE 26 mmol/L (21-32); CHLORIDE 110 mmol/L (98-107); CREATININE 1.4 mg/dL (0.6-1.3); GLUCOSE 117 mg/dL (74-106); MAGNESIUM 1.6 mg/dL (1.8-2.4); PHOSPHORUS 3.1 mg/dL (2.5-4.9); SODIUM SERUM 143 mmol/L (136-145); UREA NITROGEN, BLOOD 34 mg/dL (7-18)
[2017-05-12] MEDS: Z GUARD REMEDY 2 OZ OINT TP SCH (10:00)
[2017-05-12] MEDS: ASPIRIN 81 MG TAB.CHEW PO SCH (10:00)
[2017-05-12 11:12] LABS: *SPE A/G RATIO 0.9 (0.7-1.7); *SPE ALBUMIN 2.5 g/dL (2.9-4.4); *SPE ALPHA-1-GLOBULIN 0.3 g/dL (0.0-0.4); *SPE ALPHA-2-GLOBULIN 0.8 g/dL (0.4-1.0); *SPE BETA GLOBULIN 0.8 g/dL (0.7-1.3); *SPE GLOBULIN, TOTAL 2.9 g/dL (2.2-3.9); *SPE M-SPIKE Not Observed g/dL (Not Observed); *SPEGAMMA GLOBULIN 0.9 g/dL (0.4-1.8)
[2017-05-12] MEDS ORDERED: MERO500V IV (12:11)
[2017-05-12] MEDS ORDERED: PANT40TA2 PO (12:11)
[2017-05-12] MEDS: Magnesium 1GM/D5W 100ML PREMIX 100 ML IV SCH ×2 (12:42→14:00)
[2017-05-12 16:00] VITALS: BP 123/56
--- NOTE | 2017-05-12 18:32 | NUR ---
MS RN NOTES PATIENT IN BED, A/O X1-2. MELBA MIDLINE PATENT AND INTACT, FLUSHES WELL. WILL REMAINS IN PLACE, PATIENT WILL CONT ANTIBIOTIC IV UPON DC TO SNF. AFEBRILE DURING THE SHIFT, TURN AND REPOSITION. PANTOJA CATH INTACT, PER DR. COLON TO LEAVE IT ON FOR 72 HOURS UPON DC TO SNF. CHARGE NURSE IS AWARE. CALLED [facility] SPOKE TO NIGHAT FOR REPORT, NOTIFIED SON-JOSIAH RAM. WILL ENDORSE TO OSIEL RN, PATIENT WILL BE TRANSPORTED VIA AMBULANCE.
--- NOTE | 2017-05-12 19:18 | NUR ---
MS RN DISCHARGED PATIENT LEFT HOSP IN STABLE CONDITION VIA AMBULANCE.
[2017-05-13 14:17] LABS: PTH, INTACT 96 pg/mL (15-65)
== END 2017-05-12 20:15 | DRG 871 ==
LOC: ER 12:25 → TELE 16:27 → MED 05-10 08:00
PROVIDERS: ADMIT Internal Medicine; ATTEND Internal Medicine
PROC: 05H533Z Insertion of Infusion Device into Right Subclavian Vein, Percutaneous Approach (ICD-10-PCS; 2017-05-10)
PROC: B546ZZA Ultrasonography of Right Subclavian Vein, Guidance (ICD-10-PCS; 2017-05-10)
PROC: 30233N1 Transfusion of Nonautologous Red Blood Cells into Peripheral Vein, Percutaneous Approach (ICD-10-PCS; principal; 2017-05-11)
DX: A41.9 Sepsis, unspecified organism (principal); N17.0 Acute kidney failure with tubular necrosis; I21.A1 Myocardial infarction type 2; G93.41 Metabolic encephalopathy; R53.2 Functional quadriplegia; E87.2 Acidosis; I95.9 Hypotension, unspecified; R13.10 Dysphagia, unspecified; D68.59 Other primary thrombophilia; E87.5 Hyperkalemia; N39.0 Urinary tract infection, site not specified; Z68.41 Body mass index [BMI] 40.0-44.9, adult; E66.01 Morbid (severe) obesity due to excess calories; D63.8 Anemia in other chronic diseases classified elsewhere; E86.0 Dehydration; I12.9 Hypertensive chronic kidney disease with stage 1 through stage 4 chronic kidney disease, or unspecified chronic kidney disease; N18.9 Chronic kidney disease, unspecified; Z86.73 Personal history of transient ischemic attack (TIA), and cerebral infarction without residual deficits; Z86.718 Personal history of other venous thrombosis and embolism; Z87.440 Personal history of urinary (tract) infections; Z79.899 Other long term (current) drug therapy; B96.89 Other specified bacterial agents as the cause of diseases classified elsewhere; Z79.82 Long term (current) use of aspirin; F03.90 Unspecified dementia, unspecified severity, without behavioral disturbance, psychotic disturbance, mood disturbance, and anxiety; E04.1 Nontoxic single thyroid nodule; N28.1 Cyst of kidney, acquired
CPT/HCPCS: 36415; 71045-TC; 71250-TC; 76536-TC; 76770-TC; 80048-TC; 80053-TC; 80076-TC; 80202-TC; 81000-TC; 82550-TC; 82553-TC; 82570-TC; 83540-TC; 83605-TC; 83690-TC; 83735-TC; 83970; 84100-TC; 84155; 84155-TC; 84165; 84300-TC; 84439-TC; 84443-TC; 84481; 84484-TC; 85025-TC; 85027-TC; 85385-TC; 85610-TC; 85730-TC; 86850-TC; 86921-TC; 87040-TC; 87070-TC; 87081-TC; 87086-TC; 87186-TC; 94799-TC; A4216; A4606; C9113; J2185; J2405; J2543; J3370; J3475; J7030; J7050; J7060; P9016-BL; Z7610

== ENCOUNTER 2017-10-14 13:53 | Inpatient (IN) | payer MEDICARE, MEDICAID ==
[~2017-10-14] VITALS: Ht 162.6 cm; Wt 104.5 kg
[~2017-10-14 13:53] MED LIST: ACET-2605 PO; ASPI-1152 PO; ATOR10TA PO; DOCU-141 PO; HYDR-3974 PO; MAGN400O6 PO; MERO500V IV; MULT-659 PO; OMEG-167 PO; ONDA4TAB5 PO; PANT40TA2 PO; SENN-167 PO; ZOLP5TAB2 PO
--- NOTE | 2017-10-14 13:59 | NUR ---
BB PRIVATE EMS FROM [facility] FOR FAILURE TO THRIVE, NOT EATING X 3 DAYS ACCDG TO REPORT. PT IS A/OX1. NAD VSS RR EVEN AND UNLABORED. SKIN IS WARM AND NON DIAPHROETIC. PENDING ER MD EVALUATION.
--- NOTE | 2017-10-14 14:20 | NUR ---
PT NOTED IN SOLED DIAPER. CLEANED AND CHANGED PER PROTOCOL. URINE SAMPLE OBTAINED, VIA IN AND OUT CATH, SENT.
[2017-10-14 14:55] LABS: BASOPHILS % (AUTO) 0.5 % (0.0-2.0); EOSINOPHILS % (AUTO) 1.4 % (0.0-6.0); HEMATOCRIT 40 % (33-45); HEMOGLOBIN 13.4 g/dL (11.5-14.8); LYMPHOCYTES # (AUTO) 1.5 /CMM (0.8-4.8); LYMPHOCYTES % (AUTO) 21.5 % (20.0-44.0); MEAN CORPUSCULAR HEMOGLOBIN 31 PG (26.0-33.0); MEAN CORPUSCULAR HGB CONC 34 g/dl (31.0-36.0); MEAN CORPUSCULAR VOLUME 91 fL (82-100); MONOCYTES # (AUTO) 0.3 /CMM (0.1-1.30); MONOCYTES % (AUTO) 4.9 % (2.0-12.0); NEUTROPHILS # (AUTO) 4.9 /CMM (1.8-8.9); NEUTROPHILS % (AUTO) 71.7 % (43.0-81.0); PLATELET COUNT (AUTO) 141 /CMM (150-450); RDW COEFFICIENT OF VARIATION 17.3 (11.5-15.0); RED BLOOD CELL COUNT(AUTO) 4.32 MIL/uL (4.0-5.2); WHITE BLOOD COUNT (AUTO) 6.8 K/uL (4.3-11.0)
[2017-10-14 15:06] LABS: ALBUMIN 2.5 g/dL (3.4-5.0); BILIRUBIN,DIRECT 0.3 mg/dL (0.0-0.2); BILIRUBIN,TOTAL 0.8 mg/dL (0.2-1.0); TOTAL PROTEIN, SERUM 6.3 g/dL (6.4-8.2)
[2017-10-14 15:17] LABS: APPEARANCE,URINE Turbid (CLEAR); BILIRUBIN,URINE SMALL (NEGATIVE); BLOOD, URINE Moderate Ery/uL (NEGATIVE); COLOR,URINE Yellow (YELLOW); KETONES,URINE Trace (NEGATIVE); LEUKOCYTE ESTERASE ,URINE Large (NEGATIVE); NITRITE, URINE Positive (NEGATIVE); PROTEIN,URINE 30 mg/dl (NEGATIVE); UGLUCOSE Negative (NEGATIVE); UROBILINOGEN,URINE 0.2 EU/dL (0.2)
[2017-10-14 15:19] LABS: INR 1.01 (0.85-1.15)
[2017-10-14 15:23] LABS: WBC,URINE TOO NUMEROUS TO COUN /HPF (0-3)
[2017-10-14 15:24] LABS: BACTERIA,URINE Few /HPF (None Seen); SQUAMOUS EPITHELIAL CELL,UR Few /HPF (None Seen)
[2017-10-14 15:54] LABS: CALCIUM, SERUM 8.5 mg/dL (8.5-10.1); CARBON DIOXIDE 23 mmol/L (21-32); CHLORIDE 105 mmol/L (98-107); CREATININE 1.5 mg/dL (0.6-1.3); GLUCOSE 105 mg/dL (74-106); POTASSIUM 3.9 mmol/L (3.5-5.1); SODIUM SERUM 138 mmol/L (136-145); UREA NITROGEN, BLOOD 25 mg/dL (7-18)
--- NOTE | 2017-10-14 16:09 | NUR ---
RAY CALLED, VINCE CARTER TITLE MANAGER, TRANSFERRED CALL TO .
--- NOTE | 2017-10-14 16:17 | NUR ---
CALLED NURSING SUP. FOR MS BED
[2017-10-14] MEDS ORDERED: ASCO500T9 PO (16:21)
[2017-10-14] MEDS ORDERED: METF500T6 PO (16:21)
[2017-10-14] MEDS ORDERED: FERR325T23 PO (16:21)
[2017-10-14] MEDS ORDERED: CHOL200026 PO (16:21)
[2017-10-14] MEDS ORDERED: PANT40TA2 PO (16:21)
[2017-10-14] MEDS ORDERED: PIPERACILLIN /TAZOBACTAM 2.25 G in IV D5W 50 ML IV ONE (16:30)
--- NOTE | 2017-10-14 16:58 | NUR ---
REPORT GIVEN TO NAY ARIAS FOR MS 320-1.
[2017-10-14] MEDS ORDERED: ACETAMINOPHEN 325 MG TABLET PO PRN (17:00)
[2017-10-14] MEDS ORDERED: Medication Not On Formulary EA (Omega-3 Fatty Acids/Fish Oil (Fish Oil 1,000 Mg Softgel) PO SCH (17:00)
[2017-10-14] MEDS ORDERED: MAGNESIUM HYDROXIDE 30 ML UDC PO PRN (17:00)
[2017-10-14] MEDS ORDERED: MAG HYDROX/AL HYDROX/SIMETH 30 ML UDC PO PRN (17:00)
[2017-10-14] MEDS ORDERED: ONDANSETRON HCL/PF 4 MG/2 ML VIAL IVP PRN (17:00)
[2017-10-14] MEDS ORDERED: DEXTROSE 50%-WATER 50 ML DISP.SYRIN IV PRN (17:00)
[2017-10-14] MEDS ORDERED: HYDROCODONE/APAP 5/325MG 1 EACH TABLET PO PRN (17:00)
[2017-10-14] MEDS ORDERED: Z GUARD REMEDY 2 OZ OINT TP PRN (17:00)
--- NOTE | 2017-10-14 17:15 | NUR ---
MS/RN OPENING NOTE PATIENT IS RECEIVED ON A GURNEY. ALERT TO SELF. REDIRECTION AND REORIENTATE PROVIDED. THE PATIENT IS EDUCATED ABOUT UNIT AND CALL LIGHT. BED LOW AND LOCKED. SIDE RAILS UP X3. CALL LIGHT WITHIN REACH. WILL CONTINUE TO MONITOR.
[2017-10-14] MEDS: FERROUS SULFATE (325 MG) 325 MG/TAB TABLET PO SCH (18:11)
[2017-10-14] MEDS: BLOOD SUGAR DIAGNOSTIC 1 EACH STRIP IN SCH ×2 (18:11→21:17)
[2017-10-14] MEDS: DOCUSATE SODIUM 100 MG CAPSULE PO SCH (18:11)
[2017-10-14] MEDS: ASCORBIC ACID 500 MG TABLET PO SCH (18:11)
--- NOTE | 2017-10-14 18:32 | NUR ---
MS/RN CLOSING NOTE3 PATIENT ALERT TO SELF. REMINDERS AND REORIENTATION PROVIDED NEEDED. RESPIRATION REGULAR AND UNLABORED. DENIES SOB. DENIES PAIN. PATIENT WITH NO MANIFESTATION OF DISTRESS. LAC G 20 PATENT AND SALINE LOCKED. INCONTINENT. GOOD AND GENTLE SKIN CARE RENDERED. BOWEL MOVEMENT X1. TURNED AND REPOSITIONED Q2HR AND NEEDED. BED LOW AND LOCKED. SIDE RAILS UP X3. CALL LIGHT WITHIN REACH. WILL ENDORSE TO GROVE WORKER.
[2017-10-14 18:34] VITALS: BP 132/77
[2017-10-14] MEDS: IV NS 0.9% 1,000 ML IV PRN (18:51)
--- NOTE | 2017-10-14 19:32 | NUR ---
MS RN OPENING NOTE RECEIVE PATIENT AWAKE IN BED, A/O X1 STABLE NO FACIAL GRIMACING NOTED FOR PAIN. NO SOB OR DISTRESS NOTED, CALL LIGHT WITHIN REACH. SAFETY MEASURES IMPLEMENTED. WILL CONTINUE TO MONITOR THROUGHOUT SHIFT.
[2017-10-14 20:00] VITALS: BP 134/97
[2017-10-14] MEDS: MEROPENEM 500 MG in IV NS 0.9% 50 ML IV SCH (21:12)
[2017-10-14] MEDS: ATORVASTATIN 10 MG TABLET PO SCH (21:14)
[2017-10-14] MEDS: SENNOSIDES 8.6 MG TABLET PO SCH (21:14)
[2017-10-14] MEDS: INSULIN REGULAR, HUMAN 100 UNIT/ML 3 ML VIAL SQ PRN (21:17)
[2017-10-15] MEDS: INSULIN REGULAR, HUMAN 100 UNIT/ML 3 ML VIAL SQ PRN (05:50)
[2017-10-15] MEDS: BLOOD SUGAR DIAGNOSTIC 1 EACH STRIP IN SCH ×4 (05:50→21:52)
--- NOTE | 2017-10-15 06:03 | NUR ---
MS RN CLOSING NOTES PT COMFORTABLY ASLEEP AND EASILY AWAKEN, A/O X 1, ASSISTED REPOSITION EVERY 2 HOURS, RESPIRATION EVEN AND UNLABORED. KEPT CLEAN AND DRY AND COMFORTABLE, ALL NURSING CARE RENDERED. NEEDS ATTENDED AND ANTICIPATED, GOOD SKIN CARE PROVIDED. ON LOW BED AT ALL TIMES TO ENSURE SAFETY. SAFE HAZARD FREE ENVIRONMENT PROVIDED. NO COMPLAINS OF PAIN. CALL LIGHT WITHIN EASY TO REACH. WILL ENDORSE NEXT SHIFT CONTINUITY OF CARE.
[2017-10-15 08:00] VITALS: BP 99/44
[2017-10-15] MEDS ORDERED: MULTIVITS,TH W-FE,OTHER MIN 1 TAB TABLET PO SCH (09:00)
[2017-10-15] MEDS: IV NS 0.9% 1,000 ML IV PRN (09:18)
[2017-10-15] MEDS: MEROPENEM 500 MG in IV NS 0.9% 50 ML IV SCH ×2 (09:18→20:32)
[2017-10-15] MEDS: FERROUS SULFATE (325 MG) 325 MG/TAB TABLET PO SCH ×3 (10:20→17:56)
[2017-10-15] MEDS: ASPIRIN EC 81 MG TABLET.DR PO SCH (10:20)
[2017-10-15] MEDS: MULTIVIT, IRON, MIN NO. 8, FA 1 TAB PO SCH (10:20)
[2017-10-15] MEDS: DOCUSATE SODIUM 100 MG CAPSULE PO SCH ×2 (10:21→17:56)
[2017-10-15] MEDS: PANTOPRAZOLE 40 MG TABLET.DR PO SCH (10:21)
[2017-10-15] MEDS: CHOLECALCIFEROL 1,000 UNIT TABLET (VIT D3) PO SCH (10:22)
[2017-10-15] MEDS: ASCORBIC ACID 500 MG TABLET PO SCH ×3 (10:22→17:56)
--- NOTE | 2017-10-15 10:55 | NUR ---
WOUND CARE CONSULT: PT PRESENTS WITH SACRAL SCARRING, RT ABDOMINAL FOLD OPEN SKIN AREA (MOISTURE ASSOCIATED) AND RT BREASTFOLD RASH, PRESENT ON ADMISSION. RECOMMENDATIONS MADE FOR SKIN PROTECTION AND CARE. DISCUSSED WITH NURSING STAFF. LOW AIRLOSS BED TO BE PLACED (ISOFLEX [place] BED). ALL SKIN PROTECTION MEASURES IN PLACE. WILL SEE PRN. ADAMS IN AGREEMENT WITH PLAN OF CARE. PT IS INCONTINENT. CURRENT WILL SCORE IS 13. Addendum: 10/15/17 at 1058 by CARLOS WELLS WNDNU Amended: Links added.
[2017-10-15 11:06] LABS: BASOPHILS % (AUTO) 0.4 % (0.0-2.0); EOSINOPHILS % (AUTO) 1.1 % (0.0-6.0); HEMATOCRIT 39 % (33-45); LYMPHOCYTES % (AUTO) 13.9 % (20.0-44.0); MEAN CORPUSCULAR HEMOGLOBIN 31 PG (26.0-33.0); MEAN CORPUSCULAR HGB CONC 33 g/dl (31.0-36.0); MEAN CORPUSCULAR VOLUME 93 fL (82-100); MONOCYTES # (AUTO) 0.3 /CMM (0.1-1.30); MONOCYTES % (AUTO) 4.6 % (2.0-12.0); NEUTROPHILS # (AUTO) 5.6 /CMM (1.8-8.9); PLATELET COUNT (AUTO) 153 /CMM (150-450); RDW COEFFICIENT OF VARIATION 18.6 (11.5-15.0); RED BLOOD CELL COUNT(AUTO) 4.21 MIL/uL (4.0-5.2); WHITE BLOOD COUNT (AUTO) 7.1 K/uL (4.3-11.0)
--- NOTE | 2017-10-15 11:39 | NUR ---
pt. refusing photo beneath rt. breast.just seen by rn.
[2017-10-15 11:44] LABS: CALCIUM, SERUM 7.9 mg/dL (8.5-10.1); CARBON DIOXIDE 22 mmol/L (21-32); CHLORIDE 108 mmol/L (98-107); CREATININE 1.4 mg/dL (0.6-1.3); GLUCOSE 90 mg/dL (74-106); PHOSPHORUS 3.5 mg/dL (2.5-4.9); POTASSIUM 3.5 mmol/L (3.5-5.1); SODIUM SERUM 141 mmol/L (136-145); UREA NITROGEN, BLOOD 24 mg/dL (7-18)
[2017-10-15 11:56] LABS: CHOLESTEROL 130 mg/dL (<200); HDL CHOLESTEROL 47 mg/dL (40-60); LDL 72 mg/dL (0-99); THYROID STIMULATING HORMONE 4.473 uIU/mL (0.358-3.74); TRIGLYCERIDES 68 mg/dL (30-150)
[2017-10-15 12:28] LABS: MAGNESIUM 1.1 mg/dL (1.8-2.4)
[2017-10-15] MEDS: Magnesium 1GM/D5W 100ML PREMIX 100 ML IV SCH ×4 (12:51→16:24)
[2017-10-15] MEDS: CLOTRIMAZOLE 1% 15 GM TUBE TP SCH (15:07)
[2017-10-15 16:00] VITALS: BP 130/51
--- NOTE | 2017-10-15 18:00 | NUR ---
mg replacement done intravenously.
--- NOTE | 2017-10-15 19:30 | NUR ---
MS RN NOTES` RECEIVED ON BED A/O X1,BREATHING REGULAR,NOT IN ANY FORM DISTRESS.PRESENT IVF NS AT 75MLHR RATE IN PROGRESS INFUSING ON LFA VIA IV PUMP.SITE PATENT.PATIENT IS OBESE,WILL PUT ON ISOFLEX BED FOR SKIN MANAGEMENT.WITH SLIGHT LEFT HEMIPARESIS FROM PREVIOUS CVA.CALL LIGHT IN REACH,NEEDS ANTICIPATED.
[2017-10-15 20:00] VITALS: BP 134/69
--- NOTE | 2017-10-15 21:30 | NUR ---
MS RN NOTES ACCU-CHECK BLOOD SUGAR CHECK 87,NO INSULIN COVERAGE.
[2017-10-15] MEDS: SENNOSIDES 8.6 MG TABLET PO SCH (21:53)
[2017-10-15] MEDS: ATORVASTATIN 10 MG TABLET PO SCH (21:53)
[2017-10-15 22:24] VITALS: BP 134/69
--- NOTE | 2017-10-16 | NUR ---
MS RN NOTES PATIENT TRANSFERRED TO ISOFLEX BED,ON SUPINE POSITION THIS TIME.
--- NOTE | 2017-10-16 05:00 | NUR ---
MS RN NOTES ACCU-CHECK BLOOD SUGAR CHECK 88,NO INSULIN COVERAGE.
--- NOTE | 2017-10-16 05:30 | NUR ---
MS RN NOTES STILL REFUSING PHOTOGRAPH ON BREAST FOLD
--- NOTE | 2017-10-16 06:09 | NUR ---
MS RN NOTES FAIRLY RESTED,IVF INFUSING WELL ON LEFT AC.REPOSITION PER PROTOCOL,REMEDY TO SKIN REDNESS.IN NO ACUTE DISTRESS.WILL ENDORSE TO DAY NURSE FOR KADY.
--- NOTE | 2017-10-16 07:05 | NUR ---
MS RN NOTES PATIENT IN BED EYES CLOSED, AROUSABLE. RESPONSE TO VERBAL AND TACTILE STIMULI. NO ACUTE DISTRESS NOTED. BREATHING UNLABORED. NO SOB NOTED. NO FACIAL GRIMACING NOTED. IV ACCESS PATENT AND INTACT, NO REDNESS OR SWELLING NOTED. SAFETY MEASURES IN PLACE. HOB ELEVATED. CALL LIGHT WITHIN REACH. WILL CONTINUE TO MONITOR ACCORDINGLY.
[2017-10-16] MEDS: BLOOD SUGAR DIAGNOSTIC 1 EACH STRIP IN SCH ×4 (08:02→21:41)
[2017-10-16] MEDS: PANTOPRAZOLE 40 MG TABLET.DR PO SCH (08:02)
[2017-10-16] MEDS: MEROPENEM 500 MG in IV NS 0.9% 50 ML IV SCH ×2 (08:33→21:05)
[2017-10-16] MEDS: ASCORBIC ACID 500 MG TABLET PO SCH ×3 (08:34→17:22)
[2017-10-16] MEDS: MULTIVIT, IRON, MIN NO. 8, FA 1 TAB PO SCH (08:34)
[2017-10-16] MEDS: DOCUSATE SODIUM 100 MG CAPSULE PO SCH ×2 (08:34→17:22)
[2017-10-16] MEDS: ASPIRIN EC 81 MG TABLET.DR PO SCH (08:34)
[2017-10-16] MEDS: CHOLECALCIFEROL 1,000 UNIT TABLET (VIT D3) PO SCH (08:34)
[2017-10-16] MEDS: FERROUS SULFATE (325 MG) 325 MG/TAB TABLET PO SCH ×3 (08:34→17:22)
[2017-10-16] MEDS: CLOTRIMAZOLE 1% 15 GM TUBE TP SCH ×2 (08:39→17:22)
--- NOTE | 2017-10-16 13:29 | NUR ---
MS RN NOTES SEEN AND EVALUATED BY MARIETTA CARTER WITH NEW ORDERS MADE, NOTED AND CARRIED OUT.
[2017-10-16] MEDS: IV NS 0.9% 1,000 ML IV PRN (14:13)
[2017-10-16 16:09] VITALS: BP 152/60
--- NOTE | 2017-10-16 18:37 | NUR ---
MS RN NOTES PATIENT IN BED EYES CLOSED,AROUSABLE, RESPONSIVE TO VERBAL AND TACTILE STIMULI. VERBALLY RESPONSIVE. NO ACUTE DISTRESS NOTED. BREATHING UNLABORED. NO SOB NOTED. IV ACCESS PATENT AND INTACT, NO REDNESS OR SWELLING NOTED. DUE MEDICATIONS GIVEN, NO ASE NOTED. NEEDS ATTENDED AND ANTICIPATED. HOB ELEVATED. SAFETY MEASURES IN PLACE. CALL LIGHT WITHIN REACH. WILL CONTINUE TO MONITOR ACCORDINGLY. WILL ENDORSE TO NIGHT NURSE FOR CONTINUITY OF CARE.
--- NOTE | 2017-10-16 19:30 | NUR ---
MS RN NOTES ON BED AWAKE,ALERT,ORIENTED X 1-2,BREATHING NORMAL,NS AT 75 ML/HR RATE IN PROGRESS VIA IV PUMP.BLE ELEVATED ON PILLOWS,ISOFLEX BED IN USED FOR SKIN MANAGEMENT.REPOSITION TO RIGHT SIDE WITH ELYSE HewittCALL LIGHT IN REACH,NEEDS ANTICIPATED.
[2017-10-16 20:00] VITALS: BP 157/58
--- NOTE | 2017-10-16 21:15 | NUR ---
MS RN NOTES ACCU-CHECK BLOOD SUGAR CHECK 103,NO INSULIN COVERAGE.
[2017-10-16] MEDS: ATORVASTATIN 10 MG TABLET PO SCH (21:41)
[2017-10-16] MEDS: SENNOSIDES 8.6 MG TABLET PO SCH (21:42)
[2017-10-17 01:32] LABS: BASOPHILS # (AUTO) 0.1 /CMM (0.0-0.2); BASOPHILS % (AUTO) 0.8 % (0.0-2.0); EOSINOPHILS % (AUTO) 2.2 % (0.0-6.0); HEMATOCRIT 34 % (33-45); LYMPHOCYTES # (AUTO) 1.6 /CMM (0.8-4.8); LYMPHOCYTES % (AUTO) 24.7 % (20.0-44.0); MEAN CORPUSCULAR HEMOGLOBIN 33 PG (26.0-33.0); MEAN CORPUSCULAR HGB CONC 36 g/dl (31.0-36.0); MEAN CORPUSCULAR VOLUME 91 fL (82-100); MONOCYTES # (AUTO) 0.4 /CMM (0.1-1.30); MONOCYTES % (AUTO) 6.7 % (2.0-12.0); NEUTROPHILS # (AUTO) 4.4 /CMM (1.8-8.9); NEUTROPHILS % (AUTO) 65.6 % (43.0-81.0); PLATELET COUNT (AUTO) 145 /CMM (150-450); RDW COEFFICIENT OF VARIATION 16.9 (11.5-15.0); RED BLOOD CELL COUNT(AUTO) 3.69 MIL/uL (4.0-5.2); WHITE BLOOD COUNT (AUTO) 6.6 K/uL (4.3-11.0)
[2017-10-17 01:42] LABS: CALCIUM, SERUM 7.6 mg/dL (8.5-10.1); CARBON DIOXIDE 25 mmol/L (21-32); CHLORIDE 107 mmol/L (98-107); CREATININE 1.3 mg/dL (0.6-1.3); GLUCOSE 100 mg/dL (74-106); MAGNESIUM 2.1 mg/dL (1.8-2.4); POTASSIUM 3.3 mmol/L (3.5-5.1); SODIUM SERUM 142 mmol/L (136-145); UREA NITROGEN, BLOOD 18 mg/dL (7-18)
--- NOTE | 2017-10-17 03:00 | NUR ---
MS RN NOTES SOUND ASLEEP,KEPT WARM AND COMFORTABLE
--- NOTE | 2017-10-17 05:30 | NUR ---
MS RN NOTES ACCU-CHECK BLOOD SUGAR CHECK 88.NO INSULIN COVERAGE.
[2017-10-17] MEDS: BLOOD SUGAR DIAGNOSTIC 1 EACH STRIP IN SCH ×4 (05:39→21:35)
[2017-10-17] MEDS: IV NS 0.9% 1,000 ML IV PRN (05:45)
--- NOTE | 2017-10-17 06:33 | NUR ---
MS RN NOTES NO SIGNIFICANT CHANGE IN STATUS.IV ABX TOLERATED WELL.NO INDICATION FOR SKILLED PT.IN NO ACUTE DISTRESS.WILL ENDORSE TO DAY NURSE FOR KADY.
--- NOTE | 2017-10-17 07:32 | NUR ---
MS RN OPENING NOTES RECEIVED PT FROM NIGHTSHIFT NURSE IN STABLE CONDITION. PT IS A/O X1. NO SOB OR SIGNS OF DISTRESS NOTED. BREATHING IS EVEN AND UNLABORED. IV TOP LEFT AC NOTED TO BE PATENT AND INTACT. NO REDNESS OR SIGNS OF DISTRESS NOTED. PT TOLERATING IV NS INFUSION WELL. BED IN LOW LOCKED POSITION, SIDE RAILS UP X3, CALL LIGHT WIHTIN REACH, BED ALARM ON. WILL CONTINUE TO MONITOR
[2017-10-17 08:00] VITALS: BP 169/89
[2017-10-17] MEDS: ASCORBIC ACID 500 MG TABLET PO SCH ×3 (08:26→16:36)
[2017-10-17] MEDS: ASPIRIN EC 81 MG TABLET.DR PO SCH (08:26)
[2017-10-17] MEDS: DOCUSATE SODIUM 100 MG CAPSULE PO SCH ×2 (08:26→16:36)
[2017-10-17] MEDS: CHOLECALCIFEROL 1,000 UNIT TABLET (VIT D3) PO SCH (08:26)
[2017-10-17] MEDS: PANTOPRAZOLE 40 MG TABLET.DR PO SCH (08:26)
[2017-10-17] MEDS: MULTIVIT, IRON, MIN NO. 8, FA 1 TAB PO SCH (08:26)
[2017-10-17] MEDS: FERROUS SULFATE (325 MG) 325 MG/TAB TABLET PO SCH ×3 (08:26→16:36)
[2017-10-17] MEDS: MEROPENEM 500 MG in IV NS 0.9% 50 ML IV SCH ×2 (08:27→20:29)
[2017-10-17] MEDS: CLOTRIMAZOLE 1% 15 GM TUBE TP SCH ×2 (08:35→16:41)
[2017-10-17] MEDS ORDERED: POTASSIUM CHLORIDE 20 MEQ TAB.PRT.SR PO SCH (12:00)
[2017-10-17 16:00] VITALS: BP 119/72
--- NOTE | 2017-10-17 18:22 | NUR ---
MS RN CLOSING NOTES PT REMAINS IN STABLE CONDITION. ALL NEEDS WERE ANTICIPATED FOR AND MET THROUGHOUT SHIFT. ALL DUE MEDS GIVEN. WOUND AND SKIN CARE RENDERED. PT WAS REPOSITION AND TURNED PER HOSPITAL PROTOCOL. IV REMAINS PATENT AND INTACT. PT CONTINUES TO TOLERATE NS INFUSION WELL. SAFETY MEASURES REMAIN IN PLACE. WILL ENDORSE TO NIGHTSHIFT NURSE FOR KADY
--- NOTE | 2017-10-17 19:15 | NUR ---
MS RN OPENING NOTES RECEIVED PT IN BED WITH EYES OPEN, A & O X 1, ABLE TO FOLLOW SIMPLE DIRECTIONS. RESPONSIVE TO VERBAL AND TACTILE STIMULI. NO ACUTE DISTRESS NOTED. BREATHING UNLABORED. NO SOB NOTED. NO FACIAL GRIMACING NOTED. IV ACCESS TO LAC, PATENT AND INTACT, NO REDNESS OR SWELLING NOTED. IN SEMI-FU POSITION. SAFETY MEASURES IN PLACE. CALL LIGHT WITHIN REACH. WILL CONTINUE TO MONITOR ACCORDINGLY.
[2017-10-17 20:00] VITALS: BP 147/74
--- NOTE | 2017-10-17 20:00 | NUR ---
MS RN NOTE ASSISTED PT WITH SNACK FEEDING, SWALLOWING BETTER & TOLERATED WELL.
[2017-10-17] MEDS: SENNOSIDES 8.6 MG TABLET PO SCH (21:35)
[2017-10-17] MEDS: ATORVASTATIN 10 MG TABLET PO SCH (21:35)
--- NOTE | 2017-10-17 22:15 | NUR ---
MS RN NOTE PT WAS ADMINISTERED IV MERREM ORDERED, BUT LAC SITE GOT INFILTRATED. REMOVED IV CATHETER, ELEVATED LEFT ARM, NO BLEEDING OR DRAINAGE NOTED. MERREM WAS HALF FINISHED ONLY. ATTEMPTED TO INSERT NEW IV BUT PT GOT IRRITATED, GAVE SOME SPACE, WILL RETRY WHEN PT IS CLAM & RELAXED. MONITORING CLOSELY.
--- NOTE | 2017-10-17 23:20 | NUR ---
MS RN NOTE ORANGE JUICE WAS OFFERED TO THE PT & TOLERATED WELL. CN TRIED TO FIND THE VEIN WITH ACCU VEIN MACHINE BUT UNABLE TO FIND IT. CALLED ICU NURSE TO INSERT NEW IV LINE. WILL F/U AGAIN.
--- NOTE | 2017-10-18 00:30 | NUR ---
MS RN NOTE ICU NURSE TRIED TO INSERT NEW IV LINE BUT UNSUCCESSFUL, WILL INFORM MD.
--- NOTE | 2017-10-18 01:14 | NUR ---
NEW ORDERS DR. MENJIVAR MADE ROUND, INFORMED MD THAT PT HAS NO IV ACCESS, HARD STICK, MS 3 BARB RN & ICU NURSE ATTEMPTED TO INSERT IV BUT WAS UNABLE TO DO IT. MD ORDERED TO DC MERREM IV & IVF NS @ THIS TIME. PT IS ABLE TO TAKE PO INTAKE WITH ASSISTANCE & TOLERATING WELL. URINE CX IS PENDING, ASKED MD IF HE WOULD LIKE TO CHANGE TO PO ANTIBIOTIC BUT NO NEW ORDER @ THIS TIME FOR PO ATB. MD IS ALSO AWARE THAT PT IS DIABETIC. ORDERS NOTED & CARRIED OUT.WILL CONTINUE TO ENCOURAGE PO FLUIDS TO THE PT TOLERATED.
[2017-10-18 06:00] LABS: CALCIUM, SERUM 8.1 mg/dL (8.5-10.1); CARBON DIOXIDE 20 mmol/L (21-32); CHLORIDE 106 mmol/L (98-107); CREATININE 1.3 mg/dL (0.6-1.3); GLUCOSE 137 mg/dL (74-106); MAGNESIUM 1.9 mg/dL (1.8-2.4); PHOSPHORUS 2.9 mg/dL (2.5-4.9); POTASSIUM 3.7 mmol/L (3.5-5.1); SODIUM SERUM 137 mmol/L (136-145); UREA NITROGEN, BLOOD 16 mg/dL (7-18)
[2017-10-18 06:28] LABS: BASOPHILS % (AUTO) 0.1 % (0.0-2.0); EOSINOPHILS % (AUTO) 1.8 % (0.0-6.0); HEMATOCRIT 35 % (33-45); HEMOGLOBIN 12.1 g/dL (11.5-14.8); LYMPHOCYTES # (AUTO) 1.3 /CMM (0.8-4.8); LYMPHOCYTES % (AUTO) 18.6 % (20.0-44.0); MEAN CORPUSCULAR HEMOGLOBIN 31 PG (26.0-33.0); MEAN CORPUSCULAR HGB CONC 34 g/dl (31.0-36.0); MEAN CORPUSCULAR VOLUME 92 fL (82-100); MONOCYTES # (AUTO) 0.4 /CMM (0.1-1.30); NEUTROPHILS # (AUTO) 5.1 /CMM (1.8-8.9); NEUTROPHILS % (AUTO) 73.5 % (43.0-81.0); PLATELET COUNT (AUTO) 145 /CMM (150-450); RED BLOOD CELL COUNT(AUTO) 3.86 MIL/uL (4.0-5.2); WHITE BLOOD COUNT (AUTO) 6.9 K/uL (4.3-11.0)
[2017-10-18] MEDS: BLOOD SUGAR DIAGNOSTIC 1 EACH STRIP IN SCH ×4 (06:31→21:04)
--- NOTE | 2017-10-18 06:35 | NUR ---
MS RN CLOSING NOTES PT SLEPT INTERMITTENTLY @ NIGHT, A & O X 1, ABLE TO FOLLOW SIMPLE DIRECTIONS. RESPONSIVE TO VERBAL AND TACTILE STIMULI. NO ACUTE DISTRESS NOTED. BREATHING UNLABORED. NO SOB NOTED. NO FACIAL GRIMACING NOTED. NO IV ACCESS, CHARLENE ALONZO MD AWARE. IN SEMI-UF POSITION. SAFETY MEASURES IN PLACE. CALL LIGHT WITHIN REACH. WILL ENDORSE TO AM RN FOR CONTINUITY OF CARE.
--- NOTE | 2017-10-18 07:05 | NUR ---
MS RN NOTES PATIENT IN BED EYES CLOSED, AROUSABLE. RESPONSE TO VERBAL AND TACTILE STIMULI. NO ACUTE DISTRESS NOTED. BREATHING UNLABORED. NO SOB NOTED. NO FACIAL GRIMACING NOTED.SAFETY MEASURES IN PLACE. HOB ELEVATED. CALL LIGHT WITHIN REACH. WILL CONTINUE TO MONITOR ACCORDINGLY.
[2017-10-18] MEDS: ASCORBIC ACID 500 MG TABLET PO SCH ×3 (08:27→17:04)
[2017-10-18] MEDS: DOCUSATE SODIUM 100 MG CAPSULE PO SCH ×2 (08:27→17:04)
[2017-10-18] MEDS: FERROUS SULFATE (325 MG) 325 MG/TAB TABLET PO SCH ×3 (08:27→17:04)
[2017-10-18] MEDS: CHOLECALCIFEROL 1,000 UNIT TABLET (VIT D3) PO SCH (08:27)
[2017-10-18] MEDS: ASPIRIN EC 81 MG TABLET.DR PO SCH (08:27)
[2017-10-18] MEDS: CLOTRIMAZOLE 1% 15 GM TUBE TP SCH ×2 (08:27→17:05)
[2017-10-18] MEDS: PANTOPRAZOLE 40 MG TABLET.DR PO SCH (08:27)
[2017-10-18] MEDS: MULTIVIT, IRON, MIN NO. 8, FA 1 TAB PO SCH (08:27)
[2017-10-18] MEDS: INSULIN REGULAR, HUMAN 100 UNIT/ML 3 ML VIAL SQ PRN ×2 (12:43→21:05)
[2017-10-18 16:00] VITALS: BP 148/72
--- NOTE | 2017-10-18 18:45 | NUR ---
MS RN NOTES PATIENT IN BED ALERT , VERBALLY RESPONSIVE. HOB ELEVATED.NO ACUTE DISTRESS NOTED. BREATHING UNLABORED. NO SOB NOTED. DENIED ANY PAIN. DUE MEDICATIONS GIVEN, NO ASE NOTED. NO S/SX OF HYPOGLYCEMIA OR HYPERGLYCEMIA NOTED. SAFETY MEASURES IN PLACE. NEEDS ATTENDED AND ANTICIPATED. CALL LIGHT WITHIN REACH. WILL CONTINUE TO MONITOR ACCORDINGLY. WILL ENDORSE TO NIGHT NURSE FOR CONTINUITY OF CARE.
--- NOTE | 2017-10-18 19:00 | NUR ---
MS RN OPENING NOTE RECEIVE PATIENT AWAKE IN BED, A/O X 4, STABLE NO FACIAL GRIMACING NOTED FOR PAIN. NO SOB OR DISTRESS NOTED, CALL LIGHT WITHIN REACH. SAFETY MEASURES IMPLEMENTED. WILL CONTINUE TO MONITOR THROUGHOUT SHIFT. Addendum: 10/18/17 at 1929 by DINAH WILSON RN ADDENDUM: PT A/O X1, CONFUSED
[2017-10-18 20:00] VITALS: BP 149/93
[2017-10-18] MEDS: ATORVASTATIN 10 MG TABLET PO SCH (21:04)
[2017-10-18] MEDS: SENNOSIDES 8.6 MG TABLET PO SCH (21:04)
[2017-10-19] MEDS: BLOOD SUGAR DIAGNOSTIC 1 EACH STRIP IN SCH ×2 (05:51→11:26)
[2017-10-19] MEDS: INSULIN REGULAR, HUMAN 100 UNIT/ML 3 ML VIAL SQ PRN (05:52)
--- NOTE | 2017-10-19 06:16 | NUR ---
MS RN CLOSING NOTES PT COMFORTABLY ASLEEP AND EASILY AWAKEN, A/O X 1, TOLERATING ROOM AIR 98%, RESPIRATION EVEN AND UNLABORED. KEPT CLEAN AND DRY AND COMFORTABLE, ALL NURSING CARE RENDERED. NEEDS ATTENDED AND ANTICIPATED, ASSISTED REPOSITION EVERY 2 HOURS, GOOD SKIN CARE PROVIDED. ON LOW BED AT ALL TIMES TO ENSURE SAFETY. SAFE HAZARD FREE ENVIRONMENT PROVIDED. NO COMPLAINS OF PAIN. CALL LIGHT WITHIN EASY TO REACH. WILL ENDORSE NEXT SHIFT CONTINUITY OF CARE
--- NOTE | 2017-10-19 07:10 | NUR ---
MS RN OPENING NOTE RECEIVE PATIENT AWAKE IN BED, A/O X 1-2, STABLE . NO ACUTE DISTRESS, NO SOB. NO FACIAL GRIMACING NOTED FOR PAIN. IV SITE INTACT AND PATENT. SAFETY MEASURES IMPLEMENTED. KEPT PATIENT COMFORTABLE. BED IN LOCKED/LOW POSITION, SIDERAILS UPX2. CALL LIGHT IN REACH WILL CONTINUE TO MONITOR ACCORDINGLY THROUGHOUT SHIFT.
[2017-10-19 08:00] VITALS: BP 146/54
[2017-10-19 08:02] LABS: CALCIUM, SERUM 8.3 mg/dL (8.5-10.1); CARBON DIOXIDE 22 mmol/L (21-32); CHLORIDE 107 mmol/L (98-107); GLUCOSE 140 mg/dL (74-106); MAGNESIUM 1.6 mg/dL (1.8-2.4); PHOSPHORUS 2.5 mg/dL (2.5-4.9); POTASSIUM 3.6 mmol/L (3.5-5.1); SODIUM SERUM 139 mmol/L (136-145); UREA NITROGEN, BLOOD 15 mg/dL (7-18)
[2017-10-19 08:37] LABS: HEMATOCRIT 40 % (33-45); HEMOGLOBIN 13.6 g/dL (11.5-14.8); RED BLOOD CELL COUNT(AUTO) 4.39 MIL/uL (4.0-5.2); WHITE BLOOD COUNT (AUTO) 13.7 K/uL (4.3-11.0)
[2017-10-19 08:38] LABS: BASOPHILS % (AUTO) 0.3 % (0.0-2.0); EOSINOPHILS % (AUTO) 0.1 % (0.0-6.0); LYMPHOCYTES % (AUTO) 10.1 % (20.0-44.0); MEAN CORPUSCULAR HEMOGLOBIN 31 PG (26.0-33.0); MEAN CORPUSCULAR HGB CONC 34 g/dl (31.0-36.0); MEAN CORPUSCULAR VOLUME 91 fL (82-100); MONOCYTES % (AUTO) 7.1 % (2.0-12.0); NEUTROPHILS % (AUTO) 82.4 % (43.0-81.0); PLATELET COUNT (AUTO) 174 /CMM (150-450); RDW COEFFICIENT OF VARIATION 17.3 (11.5-15.0)
[2017-10-19] MEDS: PANTOPRAZOLE 40 MG TABLET.DR PO SCH (08:51)
[2017-10-19] MEDS: ASCORBIC ACID 500 MG TABLET PO SCH ×2 (08:52→13:12)
[2017-10-19] MEDS: ASPIRIN EC 81 MG TABLET.DR PO SCH (08:52)
[2017-10-19] MEDS: DOCUSATE SODIUM 100 MG CAPSULE PO SCH (08:52)
[2017-10-19] MEDS: MULTIVIT, IRON, MIN NO. 8, FA 1 TAB PO SCH (08:53)
[2017-10-19] MEDS: FERROUS SULFATE (325 MG) 325 MG/TAB TABLET PO SCH ×2 (08:53→13:12)
[2017-10-19] MEDS: CHOLECALCIFEROL 1,000 UNIT TABLET (VIT D3) PO SCH (08:54)
[2017-10-19] MEDS: CLOTRIMAZOLE 1% 15 GM TUBE TP SCH (08:55)
[2017-10-19] MEDS: Magnesium 1GM/D5W 100ML PREMIX 100 ML IV SCH ×2 (10:23→11:27)
[2017-10-19] MEDS ORDERED: DOSING PER PHARMACY-AMIKACI IV XX PRN (12:00)
[2017-10-19] MEDS ORDERED: FEE PK DOSING 1 MIN EA MC ONE (12:11)
[2017-10-19] MEDS ORDERED: AMIK250V13 IV (12:29)
[2017-10-19] MEDS ORDERED: AMIKACIN 300 MG in IV NS 0.9% 100 ML IV SCH (13:00)
[2017-10-19 16:00] VITALS: BP 125/75
--- NOTE | 2017-10-19 16:00 | NUR ---
RN NOTES TURNED AND REPOSITIONED PATIENT EVERY 2 HOURS NEEDED.
--- NOTE | 2017-10-19 16:59 | NUR ---
DISCHARGE NOTES DISCHARGED PATIENT IN STABLE CONDITION. PICKED UP BY INCIDENT ANALYST, PAPERWORK GIVEN. NO BELONGINGS NOTED. REPORT GIVEN TO MITALI AT [facility], DISCHARGE INSTRUCTIONS GIVEN, VERBALIZED UNDERSTANDING. REMOVED IV, APPLIED PRESSURE, NO BLEEDING, NO COMPLICATIONS. REMOVED NAME BAND. SKIN PHOTOS TAKEN, PLACED ON CHART. JOSIAH(SON) NOTIFIED ABOUT PATIENT GOING BACK TO SNF.
[2017-10-20] MEDS ORDERED: AMIKACIN 300 MG in IV NS 0.9% 100 ML IV SCH (01:00)
== END 2017-10-19 17:00 | DRG 682 ==
LOC: ER 13:54 → MED 17:07
PROVIDERS: ADMIT Nurse Practitioner Acute Care; ATTEND Nurse Practitioner Acute Care
DX: N17.0 Acute kidney failure with tubular necrosis (principal); G93.41 Metabolic encephalopathy; N39.0 Urinary tract infection, site not specified; E44.0 Moderate protein-calorie malnutrition; D68.59 Other primary thrombophilia; I69.354 Hemiplegia and hemiparesis following cerebral infarction affecting left non-dominant side; N17.9 Acute kidney failure, unspecified; B96.20 Unspecified Escherichia coli [E. coli] as the cause of diseases classified elsewhere; E78.5 Hyperlipidemia, unspecified; K21.9 Gastro-esophageal reflux disease without esophagitis; E66.9 Obesity, unspecified; Z68.39 Body mass index [BMI] 39.0-39.9, adult; Z86.711 Personal history of pulmonary embolism; Z86.718 Personal history of other venous thrombosis and embolism; D72.829 Elevated white blood cell count, unspecified; E86.1 Hypovolemia; D64.9 Anemia, unspecified; I10 Essential (primary) hypertension; E11.9 Type 2 diabetes mellitus without complications
CPT/HCPCS: 36415; 71045-TC; 80048-TC; 80061-TC; 80076-TC; 81000-TC; 82962-TC; 83605-TC; 83735-TC; 84100-TC; 84443-TC; 85025-TC; 85730-TC; 87081-TC; 87086-TC; 87186-TC; A4216; A4606; J0278; J1815; J2185; J2405; J2543; J3475; J7030; J7060; Z7610

== ENCOUNTER 2018-11-16 17:54 | Inpatient (IN) | payer MEDICARE, MEDICAID ==
[~2018-11-16] VITALS: Ht 162.6 cm; Wt 82.6 kg
[~2018-11-16 17:54] MED LIST changes: +AMIK250V13 IV; +ASCO500T9 PO; +CHOL200026 PO; +FERR325T23 PO; -MERO500V IV; +METF-440 PO; -SENN-167 PO; +SENN-168 PO; -ZOLP5TAB2 PO
--- NOTE | 2018-11-16 18:21 | NUR ---
CJ MEDRANO FROM [facility], FOR CHEST CONGESTION & VOMITING, TO ER BED 10, HOOKED TO MONITOR, CHANGED TO GOWN, PROVIDED W WARM BLANKET, PT O2 SAT ON RA AT 80%, PLACED ON SIMPLE MASK AT 5LPM, O2 SAT WENT UP TO 88%, PLACED PT ON NON-REBREATHER MASK AT 15LPM, O2 SAT WENT UP TO 97%. DR HELMS AT BEDSIDE
[2018-11-16] MEDS ORDERED: FOLI1TAB16 PO (18:36)
[2018-11-16] MEDS ORDERED: TYL2T PO (18:36)
[2018-11-16] MEDS ORDERED: AMIN887L PO (18:36)
[2018-11-16] MEDS ORDERED: CYAN-51 PO (18:36)
[2018-11-16] MEDS ORDERED: ACET-73 PO ×2 (18:36)
[2018-11-16] MEDS ORDERED: PANT40TA2 PO (18:36)
[2018-11-16] MEDS ORDERED: CRAN425C6 PO (18:36)
[2018-11-16] MEDS ORDERED: CALC1POW43 PO (18:36)
[2018-11-16] MEDS ORDERED: DOCU-141 PO (18:36)
[2018-11-16] MEDS ORDERED: MAGN400O6 PO (18:36)
[2018-11-16] MEDS ORDERED: METF-440 PO (18:36)
[2018-11-16] MEDS ORDERED: ASPI-605 PO (18:36)
[2018-11-16] MEDS ORDERED: ATOR40TA PO (18:36)
[2018-11-16] MEDS ORDERED: HYDR-4384 PO (18:36)
--- NOTE | 2018-11-16 18:36 | NUR ---
RECTAL TEMP 104.1F, MADE MD AWARE, VERBAL ORDER OF TYLENOL 650MG SUPP RECEIVED. CARRIED OUT.
[2018-11-16] MEDS ORDERED: ACETAMINOPHEN 650 MG/SUPP.RECT RC ONE ×2 (18:38→19:00)
--- NOTE | 2018-11-16 18:42 | NUR ---
URINE SAMPLE COLLECTED VIA STRAIGHT CATHETER. URINE SAMPLE SENT TO LAB
[2018-11-16] MEDS ORDERED: ONDANSETRON HCL/PF 4 MG/2 ML VIAL ONE (18:44)
[2018-11-16 18:52] LABS: APPEARANCE,URINE TURBID (CLEAR); BASOPHILS # (AUTO) 0.1 /CMM (0.0-0.2); BASOPHILS % (AUTO) 0.4 % (0.0-2.0); BILIRUBIN,URINE NEGATIVE (NEGATIVE); BLOOD, URINE 2+ Ery/uL (NEGATIVE); COLOR,URINE YELLOW (YELLOW); EOSINOPHILS % (AUTO) 1.6 % (0.0-6.0); HEMATOCRIT 45 % (33-45); KETONES,URINE NEGATIVE (NEGATIVE); LEUKOCYTE ESTERASE ,URINE 3+ (NEGATIVE); LYMPHOCYTES # (AUTO) 1.7 /CMM (0.8-4.8); LYMPHOCYTES % (AUTO) 14.6 % (20.0-44.0); MEAN CORPUSCULAR HGB CONC 34 g/dl (31.0-36.0); MEAN CORPUSCULAR VOLUME 94 fL (82-100); MONOCYTES # (AUTO) 0.5 /CMM (0.1-1.30); MONOCYTES % (AUTO) 4.3 % (2.0-12.0); NEUTROPHILS # (AUTO) 9.4 /CMM (1.8-8.9); NEUTROPHILS % (AUTO) 79.1 % (43.0-81.0); NITRITE, URINE POSITIVE (NEGATIVE); PH,URINE 7.5 (5.0-8.0); PLATELET COUNT (AUTO) 193 /CMM (150-450); PROTEIN,URINE TRACE mg/dl (NEGATIVE); RED BLOOD CELL COUNT(AUTO) 4.76 MIL/uL (4.0-5.2); UGLUCOSE NEGATIVE (NEGATIVE); UROBILINOGEN,URINE 0.2 EU/dL (0.2); WHITE BLOOD COUNT (AUTO) 11.8 K/uL (4.3-11.0)
[2018-11-16] MEDS ORDERED: ONDANSETRON HCL/PF 4 MG/2 ML VIAL IVP ONE (19:00)
[2018-11-16 19:08] LABS: BACTERIA,URINE Moderate /HPF (None Seen); RBC,URINE TOO NUMEROUS TO COUN /HPF (0-2); SQUAMOUS EPITHELIAL CELL,UR Rare /HPF (None Seen); WBC,URINE TOO NUMEROUS TO COUN /HPF (0-3)
[2018-11-16 19:17] LABS: CALCIUM, SERUM 8.6 mg/dL (8.5-10.1); CARBON DIOXIDE 21 mmol/L (21-32); CHLORIDE 108 mmol/L (98-107); CREATININE 1.5 mg/dL (0.6-1.3); GLUCOSE 155 mg/dL (74-106); POTASSIUM 4.1 mmol/L (3.5-5.1); SODIUM SERUM 143 mmol/L (136-145); UREA NITROGEN, BLOOD 29 mg/dL (7-18)
--- NOTE | 2018-11-16 19:22 | NUR ---
ENDORSEMENT GIVEN TO COREY ARIAS FOR KADY
[2018-11-16 19:23] LABS: ABG BASE EXCESS -5.8 mmol/L; ABG OXYGEN SATURATION 97.1 % (92.0-98.5); ABG PCO2 32.4 mmHg (35.0-45.0); ABG PO2 100.7 mmHg (75.0-100.0); AaDO2 579.9 mmHg; COHb 0.6 % (0.5-1.5); MetHb 0.6 % (0.0-1.5); O2Hb 95.9 % (94.0-97.0); SITE, ABG Left Radial; VENT MODE, BG NON REBREATHER MASK
--- NOTE | 2018-11-16 19:26 | NUR ---
Patient is resting comfortably in bed with eyes closed. Easily aroused. ON NON- REBREATHER. NO DISTRESS NOTED. WILL CONT TO MONITOR ,
[2018-11-16] MEDS ORDERED: PIPERACILLIN /TAZOBACTAM 3.375 G in IV D5W 50 ML IV ONE (19:30)
[2018-11-16 19:34] LABS: ALANINE AMINOTRANSFERASE 16 U/L (12-78); ALBUMIN 3.2 g/dL (3.4-5.0); ALKALINE PHOSPHATASE 93 U/L (46-116); ASPARTATE AMINOTRANSFERASE 15 U/L (15-37); BILIRUBIN,DIRECT 0.2 mg/dL (0.0-0.2); BILIRUBIN,TOTAL 0.6 mg/dL (0.2-1.0); TOTAL PROTEIN, SERUM 7.5 g/dL (6.4-8.2)
[2018-11-16] MEDS ORDERED: PIPERACILLIN /TAZOBACTAM 3.375 G VIAL IV ONE (19:35)
[2018-11-16] MEDS ORDERED: IV NS 0.9% 1,000 ML BAG IV ONE (20:00)
--- NOTE | 2018-11-16 20:24 | NUR ---
BED ASSIGNMENT 260
[2018-11-16] MEDS ORDERED: IV D5/ 0.9% NACL 1,000 ML IV ONE (21:00)
[2018-11-16] MEDS ORDERED: ZOLPIDEM TARTRATE 5 MG TABLET PO PRN (21:00)
[2018-11-16] MEDS ORDERED: ACETAMINOPHEN 325 MG TABLET PO PRN (21:00)
[2018-11-16] MEDS ORDERED: MAGNESIUM HYDROXIDE 30 ML UDC PO PRN (21:00)
[2018-11-16] MEDS ORDERED: Z GUARD REMEDY 2 OZ OINT TP PRN (21:00)
[2018-11-16] MEDS ORDERED: MAG HYDROX/AL HYDROX/SIMETH 30 ML UDC PO PRN (21:00)
[2018-11-16] MEDS ORDERED: ONDANSETRON HCL/PF 4 MG/2 ML VIAL IVP PRN (21:00)
[2018-11-16] MEDS ORDERED: HYDROCODONE/APAP 5/325MG 1 EACH TABLET PO PRN (21:00)
--- NOTE | 2018-11-16 21:00 | NUR ---
RECEIVED REPORT FROM COREY BAKER RN FOR CONTINUITY OF CARE.
--- NOTE | 2018-11-16 21:07 | NUR ---
REPORT GIVEN TO TOBI AT ICU
--- NOTE | 2018-11-16 21:20 | NUR ---
RECEIVED PATIENT IN NO ACUTE DISTRESS IN BED. PT IS NON VERBAL, BUT OPENS EYES TO NAME. PATIENT IS ON O2 VIA NON REBREATHER AT 15LPM AND TOLERATING WELL WITH O2 SATURATION AT 100%. PATIENT IS ON TELE WITH SR WITH BBB. PATIENT HAS GENERALIZED RASH WITH THE POSSIBILITY OF SCABIES. WILL NOTIFY MD HVAC PROJECT ENGINEER. PATIENT NOT COMPLAINING OF ANY SOB, DIFFICULTY BREATHING OR PAIN AT THIS TIME. PATIENT HAS BILATERAL HAND 20G IV THAT ARE CLEAN DRY INTACT AND PATENT WITH SALINE FLUSH. BED IN LOW LOCK POSITION WITH RAILS UP X 2. CALL LIGHT WITHIN REACH AND ALL SAFETY MEASURES ENSURED AND CARRIED OUT. WILL CONTINUE TO MONITOR PATIENT.
--- NOTE | 2018-11-16 21:31 | NUR ---
PT WAS TRANSFERRED TO 260 UNDER ACLS IN STABLE PROTOCOL
[2018-11-16 22:00] VITALS: BP 90/54
[2018-11-16] MEDS ORDERED: IV D5/ 0.9% NACL 1,000 ML IV SCH (22:00)
[2018-11-16 22:19] VITALS: BP 90/55
[2018-11-16 23:00] VITALS: BP 93/51
[2018-11-17] VITALS (23 sets, daily range): BP systolic 85–147; BP diastolic 45–79
[2018-11-17] MEDS ORDERED: VANCOMYCIN 1 GM in IV NS 0.9% 250 ML IV ONE (00:30)
[2018-11-17] MEDS ORDERED: VANCOMYCIN 1 GM VIAL ONE (00:38)
[2018-11-17] MEDS ORDERED: DEXTROSE 50%-WATER 50 ML DISP.SYRIN IV PRN (01:00)
[2018-11-17] MEDS: BLOOD SUGAR DIAGNOSTIC 1 EACH STRIP IN SCH ×6 (01:16→20:36)
[2018-11-17] MEDS: INSULIN REGULAR, HUMAN 100 UNIT/ML 3 ML VIAL SQ PRN ×4 (01:18→13:08)
[2018-11-17 04:32] LABS: BASOPHILS % (AUTO) 0.1 % (0.0-2.0); HEMATOCRIT 38 % (33-45); HEMOGLOBIN 12.8 g/dL (11.5-14.8); LYMPHOCYTES # (AUTO) 0.7 /CMM (0.8-4.8); LYMPHOCYTES % (AUTO) 5.7 % (20.0-44.0); MEAN CORPUSCULAR HGB CONC 33 g/dl (31.0-36.0); MEAN CORPUSCULAR VOLUME 93 fL (82-100); MONOCYTES # (AUTO) 0.5 /CMM (0.1-1.30); MONOCYTES % (AUTO) 3.7 % (2.0-12.0); NEUTROPHILS # (AUTO) 11.1 /CMM (1.8-8.9); NEUTROPHILS % (AUTO) 90.5 % (43.0-81.0); PLATELET COUNT (AUTO) 116 /CMM (150-450); RED BLOOD CELL COUNT(AUTO) 4.11 MIL/uL (4.0-5.2); WHITE BLOOD COUNT (AUTO) 12.2 K/uL (4.3-11.0)
[2018-11-17 04:50] LABS: CARBON DIOXIDE 18 mmol/L (21-32); CHLORIDE 111 mmol/L (98-107); CREATININE 1.7 mg/dL (0.6-1.3); GLUCOSE 155 mg/dL (74-106); MAGNESIUM 1.4 mg/dL (1.8-2.4); POTASSIUM 3.9 mmol/L (3.5-5.1); SODIUM SERUM 145 mmol/L (136-145); UREA NITROGEN, BLOOD 34 mg/dL (7-18)
[2018-11-17 05:05] LABS: CHOLESTEROL 85 mg/dL (<200); HDL CHOLESTEROL 38 mg/dL (40-60); LDL 47 mg/dL (0-99); THYROID STIMULATING HORMONE 3.105 uIU/mL (0.358-3.74); TRIGLYCERIDES 45 mg/dL (30-150)
--- NOTE | 2018-11-17 06:33 | NUR ---
PATIENT REMAINS IN NO ACUTE DISTRESS IN BED. PATIENT DID NOT HAVE ANY SIGNIFICANT CHANGE IN CONDITION DURING SHIFT. ALL NEEDS MET, ALL ORDERS CARRIED OUT. WILL ENDORSE CARE TO AM RN FOR CONTINUITY OF CARE.
--- NOTE | 2018-11-17 07:10 | NUR ---
SHIPFITTER APPRENTICE INITIAL NOTES: Rec'd pt awake on bed, not in any distress, not following commands, moans/groans w/ pain. On simple mask at 10 lpm, sating at 100%. SR on telemonitor. IV line access on RH G20 & LH G20, no s/sx of infection/infiltration noted w/ D5NS x 45 cc/hr infusing well. FC draining to tiana UOP. Safety precaution in place w/ bed in lowest & locked pos. Call light placed w/in reach. Isolation precaution in place, r/o scabies. Will cont to monitor & attend pt needs. 0730 O2 sat maintains at 100%, placed on NC at 2lpm, will cont to monitor.
[2018-11-17] MEDS ORDERED: PERMETHRIN 5% CRM 60 GM TUBE TP ONE (08:00)
--- NOTE | 2018-11-17 08:39 | NUR ---
WOUND CARE CONSULT: PT PRESENTS WITH RASH AND SACRAL SCAR, LEFT ARM BRUISING WITH DRY ABRASIONS, PRESENT ON ADMISSION. DEFER TO MD FOR RASH. RECOMMENDATIONS MADE FOR SKIN PROTECTION. DISCUSSED WITH NURSING STAFF. FIRST STEP LOW AIRLOSS MATTRESS ORDERED. WILL SEE PRN. CURRENT WILL SCORE IS 12. Addendum: 11/17/18 at 0841 by CARLOS WELLS WNDNU Amended: Links added.
--- NOTE | 2018-11-17 08:45 | NUR ---
Pt seen & examined by Dr. Tay, updated about pt status.
[2018-11-17] MEDS: FAMOTIDINE/PF INJ 20 MG/2 ML VIAL IV SCH ×2 (09:02→20:32)
[2018-11-17] MEDS: HEPARIN SODIUM, PORCINE 5000 UNITS/1 ML VIAL SQ SCH ×2 (09:03→20:38)
[2018-11-17] MEDS: Magnesium 1GM/D5W 100ML PREMIX 100 ML IV SCH ×2 (10:10→11:31)
--- NOTE | 2018-11-17 10:30 | NUR ---
Pt seen & examined by Dr. Franco, per MD may apply Elimite cream even w/o scraping the pt. Order for swallow evaluation.
--- NOTE | 2018-11-17 10:40 | NUR ---
Dr. Tay made aware re: decreased tiana colored UOP. Per MD may increase current IVF to 100 cc/hr.
[2018-11-17] MEDS ORDERED: IV D5/ 0.9% NACL 1,000 ML IV SCH (11:00)
--- NOTE | 2018-11-17 13:10 | NUR ---
Dr. Franco made aware re: US of BLE results - + DVTs & decreased UOP despite of increasing IVF rate to 100 cc/hr, BUN/crea = 34/1.7. per MD, may increase it to 125 cc/hr & continue to monitor closely.
--- NOTE | 2018-11-17 13:30 | NUR ---
TAX TECHNICIANRURAL HEALTH CONSULTANT NOTES: Pt transferred to Tele 107 as ordered. Pt remains awake, not in any distress. SR/SB on telemonitor. IV line access kept patent & intact w/ no s/sx of infection/infiltration noted w/ D5NS increased rate to 125 cc/hr as ordered by Dr. Franco. FC kept patent & intact draining to minimal tiana UOP, FC flushed. All belongings sent w/ pt including meds. Safety precaution kept in place at all times w/ bed in lowest & locked pos. Call light placed w/in reach. Report given to Martha Tarango RN. RN made aware that Elemite cream applied at 1230H. No concerns/issues identified during transfer.
--- NOTE | 2018-11-17 13:35 | NUR ---
VICE PRESIDENT FOR INSTRUCTION NOTES RECEIVED PATIENT FROM ICU, EYES CLOSED BUT MOANS AND GROANS ONLY, ON 2L O2 NC, NO SOB, RESPIRATION UNLABORED. SINUS RIC HR 58, NO FACIAL GRIMACING, BUE.BLE CONTRACTED, RT HAND AND LEFT HAND IV ACCESS FLUSHES WELL, SITE CLEAR, D5NS AT 125 ML/HR INFUSING WELL. PANTOJA IN PLACE WITH YELLOW COLORED URINE. SEE NURSING FLOWSHEET FOR SKIN ISSUES. NPO FOR NOW UNTIL SWALLOW EVAL AND RECOMMENDATION. SAFETY PRECAUTIONS IN PLACE, BED LOW LOCKED. CALL LIGHT WITHIN REACH. ISOLATION PRECAUTION IN PLACE FOR SCABIES. NEEDS ANTICIPATED. WILL CONT TO MONITOR PER PRICILLA ENGRAVING OPERATOR, PER DR. CRYSTAL, NO NEED FOR SKIN SCRAPINGS, LESION PRESENT IN WEB SPACES OF HANDS AND WILL JUST PROCEED TO TREATMENT. ELIMITE APPLIED AT 1230 PM. WILL WASH AT 0030 11/17/18.
[2018-11-17] MEDS: IV D5/ 0.9% NACL 1,000 ML IV PRN (13:59)
[2018-11-17] MEDS ORDERED: FEE PK DOSING 1 MIN EA MC ONE (14:27)
[2018-11-17] MEDS: PIPERACILLIN /TAZOBACTAM 3.375 G in IV D5W 100 ML IV SCH ×2 (15:55→23:29)
--- NOTE | 2018-11-17 17:45 | NUR ---
GREASE MAN NOTES ACCUCHECK. BS 117 MG/DL. NO INSULIN COVERAGE.
[2018-11-17] MEDS: VANCOMYCIN 1 GM in IV D5W 250 ML IV SCH (17:47)
--- NOTE | 2018-11-17 18:40 | NUR ---
CUSTOMER ASSISTANCE REPRESENTATIVE CLOSING NOTES PATIENT RESTING, EYES CLOSED BUT MOANS AND GROANS ONLY, ON 2L O2 NC, NO SOB, RESPIRATION UNLABORED. SINUS RIC HR 60, NO FACIAL GRIMACING, BUE.BLE CONTRACTED, RT HAND AND LEFT HAND IV ACCESS FLUSHES WELL, SITE CLEAR, D5NS AT 125 ML/HR INFUSING WELL. PANTOJA IN PLACE WITH YELLOW COLORED URINE. NPO FOR NOW UNTIL SWALLOW EVAL AND RECOMMENDATION. SAFETY PRECAUTIONS IN PLACE, BED LOW LOCKED. CALL LIGHT WITHIN REACH. ISOLATION PRECAUTION IN PLACE FOR SCABIES. ALL NEEDS MET FOR NOW. PM CARE DONE. TURNED AND REPOSITIONED. CALL LIGHT WITHIN REACH. WILL ENDORSE TO NEXT SHIFT FOR KADY.
--- NOTE | 2018-11-17 19:20 | NUR ---
TELE/RN ENTRY NOTES. PATIENT IN BED, RESTING COMFORTABLY AT THIS TIME. NO S/S OF ACUTE DISTRESS NOTED. RESPIRATION EVEN AND UNLABORED. NO SOB NOTED. PATIENT ALERT, EYES CLOSED BUT MOANS AND GROANS ONLY, PATIENT ON 2 LPM VIA NC SATURATING 96%. PATIENT ON TELE MONITORING WITH SINUS RIC. RT HAND AND LEFT HAND IV ACCESS NOTED WITH NO S/S OF INFECTION, INFILTRATION, FLUSHES WELL, RUNNING WITH D5NS AT 125 ML/HR. PANTOJA IN PLACE, DRAINING WELL WITH YELLOW COLORED URINE. SAFETY PRECAUTIONS IN PLACE, BED AT THE LOWEST LOCKED POSITION, CALL LIGHT WITHIN REACH. ISOLATION PRECAUTION IN PLACE FOR SCABIES, ANDREWLY OBSERVED. WILL CONTINUE TO MONITOR PATIENT PER PLAN OF CARE.
[2018-11-18] VITALS: BP 111/57
[2018-11-18] MEDS: BLOOD SUGAR DIAGNOSTIC 1 EACH STRIP IN SCH ×6 (00:13→20:25)
[2018-11-18] MEDS: IV D5/ 0.9% NACL 1,000 ML IV PRN (01:14)
[2018-11-18 04:00] VITALS: BP 123/48
[2018-11-18 06:33] LABS: BASOPHILS % (AUTO) 0.5 % (0.0-2.0); EOSINOPHILS % (AUTO) 3.3 % (0.0-6.0); HEMATOCRIT 36 % (33-45); LYMPHOCYTES # (AUTO) 1.4 /CMM (0.8-4.8); LYMPHOCYTES % (AUTO) 15.2 % (20.0-44.0); MEAN CORPUSCULAR HGB CONC 33 g/dl (31.0-36.0); MEAN CORPUSCULAR VOLUME 95 fL (82-100); MONOCYTES # (AUTO) 0.5 /CMM (0.1-1.30); MONOCYTES % (AUTO) 4.8 % (2.0-12.0); NEUTROPHILS # (AUTO) 7.2 /CMM (1.8-8.9); NEUTROPHILS % (AUTO) 76.2 % (43.0-81.0); PLATELET COUNT (AUTO) 115 /CMM (150-450); RED BLOOD CELL COUNT(AUTO) 3.81 MIL/uL (4.0-5.2); WHITE BLOOD COUNT (AUTO) 9.4 K/uL (4.3-11.0)
[2018-11-18 06:46] LABS: CALCIUM, SERUM 7.7 mg/dL (8.5-10.1); CARBON DIOXIDE 24 mmol/L (21-32); CHLORIDE 112 mmol/L (98-107); CREATININE 1.7 mg/dL (0.6-1.3); GLUCOSE 111 mg/dL (74-106); MAGNESIUM 2.1 mg/dL (1.8-2.4); POTASSIUM 3.7 mmol/L (3.5-5.1); SODIUM SERUM 146 mmol/L (136-145); UREA NITROGEN, BLOOD 36 mg/dL (7-18)
--- NOTE | 2018-11-18 06:57 | NUR ---
TELE/RN EXIT NOTES. PATIENT IN BED, RESTING COMFORTABLY AT THIS TIME. NO S/S OF ACUTE DISTRESS NOTED. RESPIRATION EVEN AND UNLABORED. NO SOB NOTED. PATIENT ALERT, OPEN EYES PATIENT ON 2 LPM VIA NC SATURATING 98%. PATIENT ON TELE MONITORING WITH SINUS RIC. RT HAND AND LEFT HAND IV ACCESS NOTED WITH NO S/S OF INFECTION, INFILTRATION, FLUSHES WELL, RUNNING WITH D5NS AT 125 ML/HR. PANTOJA IN PLACE, DRAINING WELL WITH YELLOW COLORED URINE. OUTPUT NOTED 350, NO BLADDER DISTENTION NOTED. SAFETY PRECAUTIONS IN PLACE, BED AT THE LOWEST LOCKED POSITION, CALL LIGHT WITHIN REACH. ISOLATION PRECAUTION IN PLACE FOR SCABIES, MICHAEL OBSERVED. WILL ENDORSE TO AM SHIFT NURSE FOR KADY
[2018-11-18] MEDS: PIPERACILLIN /TAZOBACTAM 3.375 G in IV D5W 100 ML IV SCH ×3 (07:04→22:22)
--- NOTE | 2018-11-18 07:30 | NUR ---
COLLECTIONS TECHNICIAN OPENING NOTES. RECEIVED REPORT FROM PM NURSE.PATIENT IN BED, RESTING COMFORTABLY AT THIS TIME. NO S/S OF ACUTE DISTRESS NOTED. RESPIRATION EVEN AND UNLABORED. NO SOB NOTED. PATIENT AWAKE, EYES CLOSED BUT MAKING INCOMPREHENSIBLE SOUNDS, PATIENT ON O2 2 LPM VIA NC SATURATING 98%. PATIENT ON TELE MONITOR WITH SINUS RIC HR 59. RT HAND AND LEFT HAND IV ACCESS WITH NO S/S OF INFECTION, INFILTRATION, FLUSHES WELL, RUNNING WITH D5NS AT 125 ML/HR. PANTOJA IN PLACE, DRAINING WELL WITH YELLOW COLORED URINE. SAFETY PRECAUTIONS IN PLACE, BED IS LOW AND IN LOCKED POSITION, CALL LIGHT WITHIN REACH. ISOLATION PRECAUTION IN PLACE FOR SCABIES, STRICTLY OBSERVED. WILL CONTINUE TO MONITOR .
[2018-11-18 08:00] VITALS: BP 139/50
[2018-11-18] MEDS: FAMOTIDINE/PF INJ 20 MG/2 ML VIAL IV SCH ×2 (09:02→20:25)
[2018-11-18] MEDS: HEPARIN SODIUM, PORCINE 5000 UNITS/1 ML VIAL SQ SCH (09:04)
[2018-11-18] MEDS ORDERED: HEPARIN INFUSION/D5W 500 ML IV PRN (09:30)
[2018-11-18] MEDS ORDERED: HEPARIN SODIUM, PORCINE 5000 UNITS/1 ML VIAL IV ONE (09:30)
--- NOTE | 2018-11-18 10:00 | NUR ---
ANALOG IC DESIGN ENGINEER NOTE SEEN BY ,UPDATED ABOUT PATIENT CONDITION.GOT NEW ORDER FOR HEPARIN IV AND D/C HEPARIN SQ.STAT PTT ORDERED.PLATELET TRENDING LOW . MADE AWARE.GOT ORDER TO PLACE NGT AND START ON XARELTO 15MG BID.D/C HEPARIN.PHARMACY MADE AWARE.
--- NOTE | 2018-11-18 11:33 | NUR ---
PLANT ENGINEERING MANAGER NOTE SEEN BY UPDATED ABOUT PATIENT CONDITION WITH LABS AND PLAN OF CARE FRO .OK TO CHANGE IVF TO D51/2 NS 125ML/HR.WILL CONTINUE TO MONITOR.
[2018-11-18 12:00] VITALS: BP 101/44
--- NOTE | 2018-11-18 12:07 | NUR ---
SCHOOL AGE LEAD TEACHER NOTE RELAYED URINE CULTURE RESULT TO ,CONTINUE SAME ANTIBIOTICS.NNO.
[2018-11-18] MEDS: IV D5/0.45 NACL 1,000 ML IV PRN (12:15)
[2018-11-18] MEDS: VANCOMYCIN 1 GM in IV D5W 250 ML IV SCH (12:16)
[2018-11-18] MEDS: RIVAROXABAN 15 MG TABLET PO SCH ×2 (12:16→16:39)
[2018-11-18] MEDS: INSULIN REGULAR, HUMAN 100 UNIT/ML 3 ML VIAL SQ PRN (12:28)
[2018-11-18 16:00] VITALS: BP 125/53
--- NOTE | 2018-11-18 19:10 | NUR ---
OPTICAL MANAGER CLOSING NOTES. PATIENT IN BED, RESTING COMFORTABLY AT THIS TIME. NO S/S OF ACUTE DISTRESS NOTED. RESPIRATION EVEN AND UNLABORED. NO SOB NOTED. PATIENT AWAKE, EYES OPEN.TRACKS. PATIENT ON O2 2 LPM VIA NC SATURATING 100%. PATIENT ON TELE MONITOR WITH SINUS RHYTHM HR 68. RT HAND AND LEFT HAND IV ACCESS WITH NO S/S OF INFECTION, INFILTRATION, FLUSHES WELL, RUNNING WITH D5NS AT 125 ML/HR. PANTOJA IN PLACE, DRAINING WELL WITH YELLOW COLORED URINE. SAFETY PRECAUTIONS IN PLACE, BED IS LOW AND IN LOCKED POSITION, CALL LIGHT WITHIN REACH. ISOLATION PRECAUTION IN PLACE FOR SCABIES, STRICTLY OBSERVED. NGT IN PLACE.POOR URINE OUT PUT.WILL CONTINUE TO MONITOR.ENDORSED TO PM NURSE FOR KADY.
--- NOTE | 2018-11-18 19:20 | NUR ---
CONTINUOUS MINING OPERATOR ENTRY NOTES. PATIENT IN BED, RESTING COMFORTABLY AT THIS TIME. NO S/S OF ACUTE DISTRESS NOTED. RESPIRATION EVEN AND UNLABORED. NO SOB NOTED. PATIENT AWAKE, EYES OPEN.TRACKS. PATIENT ON O2 2 LPM VIA NC SATURATING 100%. PATIENT ON TELE MONITOR WITH SINUS RHYTHM HR 68. RT HAND AND LEFT HAND IV ACCESS WITH NO S/S OF INFECTION, INFILTRATION, FLUSHES WELL, RUNNING WITH D5 1/2 NS AT 125 ML/HR. PANTOJA IN PLACE, DRAINING WELL WITH YELLOW COLORED URINE. SAFETY PRECAUTIONS IN PLACE, BED AT THE LOWEST AND IN LOCKED POSITION, CALL LIGHT WITHIN REACH. ISOLATION PRECAUTION MAINTAINED AND STRICTLY OBSERVED. NGT IN PLACE, PATENT, ASPIRATED, AUSCULTATED..WILL CONTINUE TO MONITOR PATIENT CONDITION PER PLAN OF CARE
[2018-11-18 20:00] VITALS: BP 132/68
[2018-11-19] VITALS: BP 142/75
[2018-11-19] MEDS: BLOOD SUGAR DIAGNOSTIC 1 EACH STRIP IN SCH ×6 (01:37→21:37)
[2018-11-19] MEDS: IV D5/0.45 NACL 1,000 ML IV PRN ×2 (01:50→10:55)
[2018-11-19 04:00] VITALS: BP 105/67
[2018-11-19] MEDS: PIPERACILLIN /TAZOBACTAM 3.375 G in IV D5W 100 ML IV SCH ×3 (06:23→23:19)
[2018-11-19 06:35] LABS: BASOPHILS # (AUTO) 0.1 /CMM (0.0-0.2); BASOPHILS % (AUTO) 0.8 % (0.0-2.0); EOSINOPHILS % (AUTO) 4.6 % (0.0-6.0); HEMATOCRIT 35 % (33-45); HEMOGLOBIN 11.7 g/dL (11.5-14.8); LYMPHOCYTES # (AUTO) 1.3 /CMM (0.8-4.8); LYMPHOCYTES % (AUTO) 15.6 % (20.0-44.0); MEAN CORPUSCULAR HGB CONC 34 g/dl (31.0-36.0); MEAN CORPUSCULAR VOLUME 95 fL (82-100); MONOCYTES # (AUTO) 0.5 /CMM (0.1-1.30); MONOCYTES % (AUTO) 5.5 % (2.0-12.0); NEUTROPHILS # (AUTO) 6.1 /CMM (1.8-8.9); NEUTROPHILS % (AUTO) 73.5 % (43.0-81.0); PLATELET COUNT (AUTO) 120 /CMM (150-450); RED BLOOD CELL COUNT(AUTO) 3.69 MIL/uL (4.0-5.2); WHITE BLOOD COUNT (AUTO) 8.3 K/uL (4.3-11.0)
--- NOTE | 2018-11-19 06:58 | NUR ---
DIESEL TRUCK DRIVER EXIT NOTES. PATIENT IN BED, RESTING COMFORTABLY AT THIS TIME. NO S/S OF ACUTE DISTRESS NOTED. RESPIRATION EVEN AND UNLABORED. NO SOB NOTED. PATIENT AWAKE, EYES OPEN.TRACKS. PATIENT ON O2 2 LPM VIA NC SATURATING 100%. PATIENT ON TELE MONITOR WITH SINUS RHYTHM/ SINUS RIC WITH BBB AND PVC. RT HAND AND LEFT HAND IV ACCESS WITH NO S/S OF INFECTION, INFILTRATION, FLUSHES WELL, RUNNING WITH D5 1/2 NS AT 125 ML/HR. PANTOJA IN PLACE, DRAINING WELL WITH YELLOW COLORED URINE, OUTPUT NOTED 500, NO BLADDER DISTENTION NOTED UPON PALPATION. SAFETY PRECAUTIONS IN PLACE, BED AT THE LOWEST AND IN LOCKED POSITION, CALL LIGHT WITHIN REACH. ISOLATION PRECAUTION MAINTAINED AND STRICTLY OBSERVED. NGT IN PLACE, PATENT, ASPIRATED, AUSCULTATED. WILL ENDORSE TO AM SHIFT NURSE FOR KADY.
[2018-11-19 07:02] LABS: CALCIUM, SERUM 7.8 mg/dL (8.5-10.1); CARBON DIOXIDE 22 mmol/L (21-32); CHLORIDE 113 mmol/L (98-107); CREATININE 1.4 mg/dL (0.6-1.3); GLUCOSE 133 mg/dL (74-106); POTASSIUM 4.1 mmol/L (3.5-5.1); SODIUM SERUM 143 mmol/L (136-145); UREA NITROGEN, BLOOD 28 mg/dL (7-18)
--- NOTE | 2018-11-19 07:05 | NUR ---
PATIENT 6AM VANCOMYCIN DOSE HELD DUE TO VANCO TROUGH DRAWN AT 5 AM AND HASN'T BEEN RESULTED YET, ENDORSED TO AM SHIFT NURSE
--- NOTE | 2018-11-19 07:30 | NUR ---
ENGINEER FISHING VESSEL OPENING NOTES. RECEIVED REPORT FROM PM NURSE.PATIENT IN BED, RESTING COMFORTABLY AT THIS TIME. NO S/S OF ACUTE DISTRESS NOTED. RESPIRATION EVEN AND UNLABORED. NO SOB NOTED. PATIENT AWAKE, OPEN EYES. PATIENT ON O2 2 LPM VIA NC .PATIENT ON TELE MONITOR WITH SINUS RHYTHM HR 61. RT HAND AND LEFT HAND IV ACCESS WITH NO S/S OF INFECTION, INFILTRATION, FLUSHES WELL, RUNNING WITH D5NS AT 125 ML/HR. PANTOJA IN PLACE, DRAINING WELL WITH YELLOW COLORED URINE. SAFETY PRECAUTIONS IN PLACE, BED IS LOW AND IN LOCKED POSITION, CALL LIGHT WITHIN REACH. ISOLATION PRECAUTION IN PLACE FOR SCABIES, STRICTLY OBSERVED. WILL CONTINUE TO MONITOR .
[2018-11-19 08:00] VITALS: BP 119/58
[2018-11-19] MEDS: FAMOTIDINE/PF INJ 20 MG/2 ML VIAL IV SCH ×2 (08:33→21:37)
[2018-11-19] MEDS: RIVAROXABAN 15 MG TABLET PO SCH ×2 (08:40→16:19)
--- NOTE | 2018-11-19 12:00 | NUR ---
MS RN NOTE SEEN BY UPDATED ABOUT PATIENT CONDITION WITH LABS.GOT NEW ORDERS.
[2018-11-19] MEDS: FLUCONAZOLE IN NS 100 MG in PREMIX 1 EA IV SCH ×2 (12:09)
[2018-11-19] MEDS: INSULIN REGULAR, HUMAN 100 UNIT/ML 3 ML VIAL SQ PRN ×2 (12:21→16:20)
[2018-11-19 16:00] VITALS: BP 124/81
--- NOTE | 2018-11-19 18:23 | NUR ---
LABORER OPERATOR OPENING NOTES. RECEIVED REPORT FROM PM NURSE.PATIENT IN BED, RESTING COMFORTABLY AT THIS TIME. NO S/S OF ACUTE DISTRESS NOTED. RESPIRATION EVEN AND UNLABORED. NO SOB NOTED. PATIENT AWAKE, OPEN EYES. PATIENT ON O2 2 LPM VIA NC .PATIENT ON TELE MONITOR WITH SINUS RHYTHM HR 61. RT HAND AND LEFT HAND IV ACCESS WITH NO S/S OF INFECTION, INFILTRATION, FLUSHES WELL, RUNNING WITH D5NS AT 125 ML/HR. PANTOJA IN PLACE, DRAINING WELL WITH YELLOW COLORED URINE. SAFETY PRECAUTIONS IN PLACE, BED IS LOW AND IN LOCKED POSITION, CALL LIGHT WITHIN REACH. ISOLATION PRECAUTION IN PLACE FOR SCABIES, STRICTLY OBSERVED. WILL CONTINUE TO MONITOR . Addendum: 11/19/18 at 1825 by EMMA SAMUELS RN 0730AM
--- NOTE | 2018-11-19 18:26 | NUR ---
MS RN NOTE LEFT MESSAGE TO REGARDING DIETARY RECOMMENDATION.WAITING TO CALL BACK.
[2018-11-19] MEDS ORDERED: JEVITY 1.2 CAL 1,000 ML BOTTLE GT PRN (18:30)
--- NOTE | 2018-11-19 19:20 | NUR ---
MS/RN ENTRY NOTES. PATIENT IN BED, RESTING COMFORTABLY AT THIS TIME. NO S/S OF ACUTE DISTRESS NOTED. RESPIRATION EVEN AND UNLABORED. NO SOB NOTED. PATIENT AWAKE, EYES OPEN.TRACKS. PATIENT ON O2 2 LPM VIA NC SATURATING 98%. RT HAND AND LEFT HAND IV ACCESS WITH NO S/S OF INFECTION, INFILTRATION, FLUSHES WELL, RUNNING WITH D5 1/2 NS AT 75 ML/HR. PANTOJA IN PLACE, DRAINING WELL WITH YELLOW COLORED URINE. SAFETY PRECAUTIONS IN PLACE, BED AT THE LOWEST AND IN LOCKED POSITION, CALL LIGHT WITHIN REACH. ISOLATION PRECAUTION MAINTAINED AND STRICTLY OBSERVED. NGT IN PLACE, PATENT, ASPIRATED, AUSCULTATED. WILL CONTINUE TO MONITOR PATIENT CONDITION PER PLAN OF CARE.
--- NOTE | 2018-11-19 19:32 | NUR ---
MS RN CLOSING NOTES. PATIENT IN BED, RESTING COMFORTABLY AT THIS TIME. NO S/S OF ACUTE DISTRESS NOTED. RESPIRATION EVEN AND UNLABORED. NO SOB NOTED. PATIENT AWAKE, EYES OPEN.TRACKS. PATIENT ON O2 2 LPM VIA NC. RT HAND AND LEFT HAND IV ACCESS WITH NO S/S OF INFECTION, INFILTRATION, FLUSHES WELL, RUNNING WITH D5NS AT 75 ML/HR. PANTOJA IN PLACE, DRAINING WELL WITH YELLOW COLORED URINE. SAFETY PRECAUTIONS IN PLACE, BED IS LOW AND IN LOCKED POSITION, CALL LIGHT WITHIN REACH. ISOLATION PRECAUTION IN PLACE FOR SCABIES, STRICTLY OBSERVED. NGT IN PLACE.GOT NEW ORDER FOT GT FEEDING FROM .ENDORSED TO PM NURSE FOR KADY.
[2018-11-19] MEDS: JEVITY 1.2 CAL 1,000 ML BOTTLE GT PRN (20:27)
[2018-11-20] VITALS: BP 136/76
[2018-11-20] MEDS: IV D5/0.45 NACL 1,000 ML IV PRN (00:04)
[2018-11-20] MEDS: BLOOD SUGAR DIAGNOSTIC 1 EACH STRIP IN SCH ×6 (00:41→22:05)
[2018-11-20] MEDS: PIPERACILLIN /TAZOBACTAM 3.375 G in IV D5W 100 ML IV SCH ×3 (06:01→23:34)
--- NOTE | 2018-11-20 06:57 | NUR ---
MS/RN ENTRY NOTES. PATIENT IN BED, RESTING COMFORTABLY AT THIS TIME. NO S/S OF ACUTE DISTRESS NOTED. RESPIRATION EVEN AND UNLABORED. NO SOB NOTED. PATIENT AWAKE, EYES OPEN.TRACKS. PATIENT ON O2 2 LPM VIA NC SATURATING 98%. RT HAND AND LEFT HAND IV ACCESS WITH NO S/S OF INFECTION, INFILTRATION, FLUSHES WELL, RUNNING WITH D5 1/2 NS AT 75 ML/HR. PANTOJA IN PLACE, DRAINING WELL WITH YELLOW COLORED URINE. SAFETY PRECAUTIONS IN PLACE, BED AT THE LOWEST AND IN LOCKED POSITION, CALL LIGHT WITHIN REACH. ALL DUE MEDS GIVEN ORDERED. ISOLATION PRECAUTION MAINTAINED AND STRICTLY OBSERVED. NGT IN PLACE, PATENT, ASPIRATED, AUSCULTATED WITH FEEDING ORDERED AT 25ML/HR, NO RESIDUAL NOTED. HOB KEPT ELEVATED AT ALL THE TIME. WILL ENDORSE TO AM SHIFT NURSE FOR KADY.
[2018-11-20 07:34] LABS: BASOPHILS # (AUTO) 0.1 /CMM (0.0-0.2); BASOPHILS % (AUTO) 0.7 % (0.0-2.0); EOSINOPHILS % (AUTO) 4.9 % (0.0-6.0); HEMATOCRIT 38 % (33-45); HEMOGLOBIN 12.5 g/dL (11.5-14.8); LYMPHOCYTES # (AUTO) 1.5 /CMM (0.8-4.8); LYMPHOCYTES % (AUTO) 17.3 % (20.0-44.0); MEAN CORPUSCULAR HGB CONC 33 g/dl (31.0-36.0); MEAN CORPUSCULAR VOLUME 95 fL (82-100); MONOCYTES # (AUTO) 0.5 /CMM (0.1-1.30); MONOCYTES % (AUTO) 5.4 % (2.0-12.0); NEUTROPHILS # (AUTO) 6.1 /CMM (1.8-8.9); NEUTROPHILS % (AUTO) 71.7 % (43.0-81.0); PLATELET COUNT (AUTO) 123 /CMM (150-450); RED BLOOD CELL COUNT(AUTO) 3.98 MIL/uL (4.0-5.2); WHITE BLOOD COUNT (AUTO) 8.6 K/uL (4.3-11.0)
[2018-11-20 08:00] VITALS: BP 148/62
[2018-11-20] MEDS: FAMOTIDINE/PF INJ 20 MG/2 ML VIAL IV SCH ×2 (08:47→22:05)
[2018-11-20] MEDS: RIVAROXABAN 15 MG TABLET PO SCH ×2 (08:47→17:17)
[2018-11-20 09:30] LABS: CALCIUM, SERUM 7.7 mg/dL (8.5-10.1); CARBON DIOXIDE 17 mmol/L (21-32); CHLORIDE 107 mmol/L (98-107); CREATININE 1.2 mg/dL (0.6-1.3); GLUCOSE 126 mg/dL (74-106); POTASSIUM 5.5 mmol/L (3.5-5.1); SODIUM SERUM 138 mmol/L (136-145); UREA NITROGEN, BLOOD 22 mg/dL (7-18)
--- NOTE | 2018-11-20 10:26 | NUR ---
SPOKE WITH SISTER BIGG REGARDING CONSENT FOR PEG,PER SISTER IT IS THE SON JOSIAH WHO MAKES DECISION FOR THE PATIENT.LEFT MESSAGE TO JOSIAH REGARDING PEG CONSENT [facility] [phone],AWAITS RESPONSE.
--- NOTE | 2018-11-20 11:03 | NUR ---
RECEIVED A CALL FROM SISTER TERESITA AND VERBALIZED THAT PATIENT DAUGHTER BIGG LYNCH WILL GIVE CONSENTSINCE SHE CANNOT REACHED THE SON JOSIAH.
--- NOTE | 2018-11-20 11:04 | NUR ---
OBTAINED CONSENT FROM DAUGHTER BIGG LYNCH [phone] OK TO PROCEED WITH PEG.GI NOTIFIED.
[2018-11-20] MEDS: FLUCONAZOLE IN NS 100 MG in PREMIX 1 EA IV SCH ×2 (11:38)
--- NOTE | 2018-11-20 14:07 | NUR ---
opened eyes when heard voices, non-verbal. awaiting PEG placement which is okayed by daughter, consent signed
[2018-11-20] MEDS ORDERED: FUROSEMIDE 40 MG/4 ML VIAL IV ONE (14:30)
[2018-11-20 16:00] VITALS: BP_SYST 136; BP_DIAS 65; BP_DIAS 68
--- NOTE | 2018-11-20 19:15 | NUR ---
MS RN NOTES RECEIVED PT IN BED RESTING COMFORTABLY. RESPIRATIONS EVEN AND UNLABORED WITH NO S/S OF ACUTE DISTRESS OR SOB NOTED. PT ON 2L VIA NC AND TOLERATING WELL. PT WITH RHAND AND LEFT HAND IV ACCESS SL, PT ALSO WITH ROBBIE MIDLINE RUNNING D5 1/2 NS @ 75 ML/HR. PANTOJA IN PLACE, DRAINING WELL WITH YELLOW COLORED URINE. ISOLATION MEASURES IN PLACE. SAFETY MEASURES IN PLACE WITH BED IN LOWEST LOCKED POSITION WITH SIDE RAILS UP X2. CALL LIGHT WITHIN REACH. WILL CONTINUE TO MONITOR.
[2018-11-20 20:00] VITALS: BP 142/62
[2018-11-20] MEDS: INSULIN REGULAR, HUMAN 100 UNIT/ML 3 ML VIAL SQ PRN (22:08)
[2018-11-21] VITALS: BP 142/62
[2018-11-21] MEDS: BLOOD SUGAR DIAGNOSTIC 1 EACH STRIP IN SCH ×6 (01:37→21:24)
[2018-11-21 04:00] VITALS: BP 142/62
[2018-11-21 06:43] LABS: BASOPHILS % (AUTO) 0.5 % (0.0-2.0); EOSINOPHILS % (AUTO) 5.1 % (0.0-6.0); HEMATOCRIT 34 % (33-45); HEMOGLOBIN 11.5 g/dL (11.5-14.8); LYMPHOCYTES # (AUTO) 1.1 /CMM (0.8-4.8); LYMPHOCYTES % (AUTO) 15.1 % (20.0-44.0); MEAN CORPUSCULAR HGB CONC 34 g/dl (31.0-36.0); MEAN CORPUSCULAR VOLUME 93 fL (82-100); MONOCYTES # (AUTO) 0.4 /CMM (0.1-1.30); NEUTROPHILS # (AUTO) 5.6 /CMM (1.8-8.9); NEUTROPHILS % (AUTO) 74.3 % (43.0-81.0); PLATELET COUNT (AUTO) 124 /CMM (150-450); RED BLOOD CELL COUNT(AUTO) 3.64 MIL/uL (4.0-5.2); WHITE BLOOD COUNT (AUTO) 7.6 K/uL (4.3-11.0)
[2018-11-21 06:49] LABS: CALCIUM, SERUM 7.2 mg/dL (8.5-10.1); CARBON DIOXIDE 23 mmol/L (21-32); CHLORIDE 109 mmol/L (98-107); CREATININE 1.2 mg/dL (0.6-1.3); GLUCOSE 128 mg/dL (74-106); SODIUM SERUM 141 mmol/L (136-145); UREA NITROGEN, BLOOD 20 mg/dL (7-18)
[2018-11-21] MEDS: PIPERACILLIN /TAZOBACTAM 3.375 G in IV D5W 100 ML IV SCH ×3 (07:20→22:11)
[2018-11-21 07:22] LABS: POTASSIUM 2.6 mmol/L (3.5-5.1)
[2018-11-21 07:25] VITALS: BP 137/81
--- NOTE | 2018-11-21 07:30 | NUR ---
MS RN OPENING NOTES RECEIVED PT IN BED, AWAKE, NON VERBAL. PT ON SUPPLEMENTARY OXYGEN AT 2L VIA NC, WITH NO ACUTER RESPIRATORY DISTRESS NOTED. PT NOT EXHIBITING PAIN OR DISCOMFORT AT THIS TIME. PT NOTED WITH NGT WITH ON GOING FEEDING. IVF D5 1/2 NS AT 75 ML/HR TO ROBBIE MIDLINE, FLUID INFUSING WELL. PIV RIGHT HAND AND LEFT HAND, BOTH FLUSHED WITH NS, INTACT AND OPERATIONAL. HOB KEPT ELEVATED. PT'S KEPT COMFORTABLE. PT'S BED IN LOWEST, LOCKED POSITION WITH SR X3. CALL LIGHT KEPT WITHIN REACH WILL CONTINUE PLAN OF CARE.
--- NOTE | 2018-11-21 07:39 | NUR ---
MS RN NOTES PT IN BED RESTING COMFORTABLY. RESPIRATIONS EVEN AND UNLABORED WITH NO S/S OF ACUTE DISTRESS OR SOB NOTED THROUGHOUT SHIFT. PT ON 2L VIA NC AND TOLERATING WELL. PT WITH RHAND AND LEFT HAND IV ACCESS SL, PT ALSO WITH ROBBIE MIDLINE RUNNING D5 1/2 NS @ 75 ML/HR. PANTOJA IN PLACE, DRAINING WELL WITH YELLOW COLORED URINE. PT ON NGT FEEDING @40CC/HR AND TOLERATING WELL. PT KEPT CLEAN, DRY, AND COMFORTABLE. PT TURNED Q2HRS. ISOLATION MEASURES IN PLACE. SAFETY MEASURES IN PLACE WITH BED IN LOWEST LOCKED POSITION WITH SIDE RAILS UP X2. CALL LIGHT WITHIN REACH. WILL ENDORSE TO ONCOMING NURSE FOR KADY.
--- NOTE | 2018-11-21 07:43 | NUR ---
MS RN NOTES RECEIVED CALL FROM LAB, SPOKE TO SHERRI REGARDING POTASSIUM LEVEL OF 2.6, CRITICAL LOW. PT ASYMPTOMATIC AT THIS TIME. RN TO INFORM MD. WILL CONTINUE TO MONITOR.
[2018-11-21 08:00] VITALS: BP 140/78
[2018-11-21] MEDS: FAMOTIDINE/PF INJ 20 MG/2 ML VIAL IV SCH ×2 (08:39→21:20)
[2018-11-21] MEDS: RIVAROXABAN 15 MG TABLET PO SCH ×2 (08:40→17:12)
--- NOTE | 2018-11-21 09:30 | NUR ---
MR RN NOTES PT'S BMP REDRAWN PER MD/GA TO RECHECK POTASSIUM LVL. TO REPLACE ORDERED. WILL CONTINUE TO MONITOR.
[2018-11-21 10:33] LABS: CALCIUM, SERUM 7.5 mg/dL (8.5-10.1); CARBON DIOXIDE 22 mmol/L (21-32); CHLORIDE 109 mmol/L (98-107); CREATININE 1.2 mg/dL (0.6-1.3); GLUCOSE 134 mg/dL (74-106); POTASSIUM 3.2 mmol/L (3.5-5.1); SODIUM SERUM 142 mmol/L (136-145); UREA NITROGEN, BLOOD 21 mg/dL (7-18)
[2018-11-21] MEDS: FLUCONAZOLE (100 MG) 100 MG TABLET PO SCH (11:07)
[2018-11-21] MEDS: POTASSIUM CL. PREMIX PERIPHER. 50 ML IV SCH ×2 (11:27→12:31)
[2018-11-21] MEDS ORDERED: POTASSIUM CHLORIDE 10 MEQ/50 ML PREMIXED IVPB FOR PERIPHERAL LINE IV ONE (11:30)
[2018-11-21] MEDS: IV D5/0.45 NACL 1,000 ML IV PRN (12:31)
[2018-11-21] MEDS: JEVITY 1.2 CAL 1,000 ML BOTTLE GT PRN (14:40)
[2018-11-21 16:00] VITALS: BP 140/78
[2018-11-21] MEDS: LACTOBACILLUS RHAMNOSUS GG 1 EACH CAP.SPRINK PO SCH (17:11)
--- NOTE | 2018-11-21 18:38 | NUR ---
MS RN CLOSING NOTES RECEIVED PT IN BED, AWAKE, NON VERBAL. PT ON SUPPLEMENTARY OXYGEN AT 2L VIA NC, WITH NO ACUTE RESPIRATORY DISTRESS NOTED. PT NOT EXHIBITING PAIN OR DISCOMFORT AT THIS TIME. PT NOTED WITH NGT WITH ON GOING FEEDING AT 50ML/HR, TOLERATING WELL. IVF D5 1/2 NS AT 75 ML/HR TO ROBBIE MIDLINE, FLUID INFUSING WELL. PIV RIGHT HAND AND LEFT HAND, BOTH FLUSHED WITH NS, INTACT AND OPERATIONAL. HOB KEPT ELEVATED. ALL NEEDS AND CARE PROVIDED. PT'S KEPT COMFORTABLE. PT'S BED IN LOWEST, LOCKED POSITION WITH SR X3. CALL LIGHT KEPT WITHIN REACH. WILL ENDORSE TO INCOMING ENGRAVER PANTOGRAPH NURSE FOR KADY.
--- NOTE | 2018-11-21 19:42 | NUR ---
MS RN NOTES RECEIVED PT ON BED. ON NASAL CANNULA NO RESPIRATORY DISTRESS NOTED. PT A/O X 1. O PANTOJA CATH DRAINING YELLOW URINE. IV ACCESS ON ROBBIE MIDLINE, RIGHT AND LEFT HAND SL. WITH D51/2NS @ 75 CC/HR. NGT @ LEFT NARE WITH JEVITY @55CC/HR. HEAD OF BED ELEVATED. SIDE RAILS UP. CALL LIGHT WITHIN REACH. BED ALARM ON. WILL CONTINUE TO MONITOR PT CLOSELY.
[2018-11-21 20:00] VITALS: BP 146/75
--- NOTE | 2018-11-21 20:23 | NUR ---
MS RN NOTES NGT TUBE PLACEMENT VERIFIED BY 2 RN VIA AUSCULTATION.
[2018-11-22] MEDS: BLOOD SUGAR DIAGNOSTIC 1 EACH STRIP IN SCH ×6 (00:51→20:23)
[2018-11-22 04:00] VITALS: BP 150/77
[2018-11-22] MEDS: PIPERACILLIN /TAZOBACTAM 3.375 G in IV D5W 100 ML IV SCH ×3 (06:00→23:14)
[2018-11-22 06:28] LABS: CALCIUM, SERUM 7.6 mg/dL (8.5-10.1); CARBON DIOXIDE 25 mmol/L (21-32); CHLORIDE 108 mmol/L (98-107); CREATININE 1.2 mg/dL (0.6-1.3); GLUCOSE 121 mg/dL (74-106); POTASSIUM 3.8 mmol/L (3.5-5.1); SODIUM SERUM 143 mmol/L (136-145); UREA NITROGEN, BLOOD 22 mg/dL (7-18)
[2018-11-22 06:43] LABS: BASOPHILS % (AUTO) 0.5 % (0.0-2.0); HEMATOCRIT 33 % (33-45); HEMOGLOBIN 11.1 g/dL (11.5-14.8); LYMPHOCYTES # (AUTO) 1.5 /CMM (0.8-4.8); LYMPHOCYTES % (AUTO) 20.9 % (20.0-44.0); MEAN CORPUSCULAR HGB CONC 34 g/dl (31.0-36.0); MEAN CORPUSCULAR VOLUME 93 fL (82-100); MONOCYTES # (AUTO) 0.5 /CMM (0.1-1.30); MONOCYTES % (AUTO) 6.6 % (2.0-12.0); NEUTROPHILS # (AUTO) 4.6 /CMM (1.8-8.9); PLATELET COUNT (AUTO) 127 /CMM (150-450); RED BLOOD CELL COUNT(AUTO) 3.53 MIL/uL (4.0-5.2)
--- NOTE | 2018-11-22 07:22 | NUR ---
MS RN NOTES NO ACUTE CHANGES NOTED DURING THE SHIFT. PROVIDED COMFORT AND SAFETY. ENDORSE TO THE AM NURSE FOR CONTINUITY OF CARE
--- NOTE | 2018-11-22 07:30 | NUR ---
MS RN OPENING NOTES RECEIVED PT IN BED, SLEEPING, NON VERBAL. AROUSABLE TO TOUCH. PT ON NC 2L, WITH NO ACUTER RESPIRATORY DISTRESS OR SOB. NO SIGN OF PAIN NOTED. NGT FEEDING RUNNING 25MH/HR. ROBBIE MIDLINE D5 1/2 NS AT 75 ML/HR. IV RIGHT HAND AND LEFT HAND, BOTH #20, FLUSHED WITH NS, INTACT AND PATENT. HOB ELEVATED. PT'S BED IN LOWEST, LOCKED POSITION WITH SR X3. CALL LIGHT KEPT WITHIN REACH. WILL CONTINUE TO MONITOR CLOSELY.
[2018-11-22 08:00] VITALS: BP 140/63
[2018-11-22] MEDS: LACTOBACILLUS RHAMNOSUS GG 1 EACH CAP.SPRINK PO SCH ×2 (08:56→17:49)
[2018-11-22] MEDS: FAMOTIDINE/PF INJ 20 MG/2 ML VIAL IV SCH ×2 (08:56→20:24)
[2018-11-22] MEDS: RIVAROXABAN 15 MG TABLET PO SCH ×2 (08:58→17:49)
--- NOTE | 2018-11-22 09:29 | NUR ---
MS RN NOTE PLT 127. PER PHARMACY IT IS OK TO ADMINISTER XARELTO. WILL NOTIFY
[2018-11-22] MEDS: IV D5/0.45 NACL 1,000 ML IV PRN (10:42)
[2018-11-22] MEDS: FLUCONAZOLE (100 MG) 100 MG TABLET PO SCH (10:43)
[2018-11-22 16:00] VITALS: BP 138/70
--- NOTE | 2018-11-22 19:49 | NUR ---
MS RN CLOSING NOTES PT IN BED, AWAKE, NON VERBAL. PT ON NC @ 2L WITH NO ACUTE RESPIRATORY DISTRESS OR SOB. PT NOT EXHIBITING PAIN OR DISCOMFORT AT THIS TIME. HOB KEPT ELEVATED. ALL NEEDS AND CARE ATTENDED. SAFETY PRECAUTION IN PLACE. BED IN LOWEST, LOCKED POSITION WITH SR X3. CALL LIGHT KEPT WITHIN REACH. WILL ENDORSE TO THE FRONT LINE SUPERVISOR NURSE FOR KADY.
[2018-11-22 20:00] VITALS: BP 139/72
--- NOTE | 2018-11-22 21:36 | NUR ---
MS RN NOTES RECEIVED PT ON BED. A/O X 1. ON NASAL CANNULA NO RESPIRATORY DISTRESS NOTED. IV ACCESS ON ROBBIE MIDLINE WITH D5 1/2NS @ 75CC/HR RUNNING WELL. ON NGT FEEDING @ 55C/HR NO RESIDUAL NOTED. PANTOJA CATH DRAINING YELLOW URINE. HEAD OF BED ELEVATED. SIDE RAILS UP. CALL LIGHT WITHIN REACH. BED ALARM ON. WILL CONTINUE TO MONITOR PT CLOSELY.
--- NOTE | 2018-11-23 | NUR ---
MS RN NOTES FILLER BLENDER BONI MADE AWARE THAT PT WAS GIVEN XARELTO 15MG @ 1700 11/22/18, PT IS SCHEDULED TO HAVE A PEG PLACEMENT IN AM. PER BONI FILLER BLENDER, OKAY TO ORDER COAGULATION STUDIES.
[2018-11-23 04:00] VITALS: BP 154/62
[2018-11-23] MEDS: BLOOD SUGAR DIAGNOSTIC 1 EACH STRIP IN SCH ×6 (04:03→21:38)
--- NOTE | 2018-11-23 05:04 | NUR ---
MS RN NOTES REPORTED TO PARTS FACILITATOR BONI REGARDING PT BS TRENDING DOWN. PER PARTS FACILITATOR BONI. D5NS @50CC/HR X1 BAG. W
[2018-11-23] MEDS ORDERED: IV D5/ 0.9% NACL 1,000 ML IV ONE (05:30)
[2018-11-23] MEDS: PIPERACILLIN /TAZOBACTAM 3.375 G in IV D5W 100 ML IV SCH ×3 (06:10→22:56)
--- NOTE | 2018-11-23 06:18 | NUR ---
MS RN NOTES NO ACUTE CHANGES NOTED DURING THE SHIFT. PROVIDED COMFORT AND SAFETY. PT NPO MIDNIGHT. WILL ENDORSE TO THE AM NURSE FOR CONTINUITY OF CARE.
[2018-11-23 06:51] LABS: CALCIUM, SERUM 7.1 mg/dL (8.5-10.1); CARBON DIOXIDE 25 mmol/L (21-32); CHLORIDE 108 mmol/L (98-107); CREATININE 0.9 mg/dL (0.6-1.3); GLUCOSE 101 mg/dL (74-106); SODIUM SERUM 142 mmol/L (136-145); UREA NITROGEN, BLOOD 15 mg/dL (7-18)
[2018-11-23 06:52] LABS: POTASSIUM 2.7 mmol/L (3.5-5.1)
--- NOTE | 2018-11-23 06:57 | NUR ---
MS RN NOTES CALLED PODIATRIST ASSISTANT BONI COOKER HELPER FOR POTASSIUM 2.7, PER BONI 60MEQ POTASSIUM TO RUN FOR 6 HOURS
[2018-11-23] MEDS: POTASSIUM CL. PREMIX PERIPHER. 50 ML IV SCH ×6 (07:25→15:30)
[2018-11-23 08:00] VITALS: BP 132/63
--- NOTE | 2018-11-23 08:29 | NUR ---
rn notes 0740-report given to OR crew. K rider infusing well for repletion, blood glucose-96 mg/dl.patient awake, non-verbal saturation up to 100% on 2LPM/NC.
[2018-11-23 10:00] VITALS: BP 141/71
[2018-11-23] MEDS: FAMOTIDINE/PF INJ 20 MG/2 ML VIAL IV SCH ×2 (11:48→21:38)
[2018-11-23] MEDS: FLUCONAZOLE (100 MG) 100 MG TABLET PO SCH (11:49)
[2018-11-23 12:00] VITALS: BP 141/71
[2018-11-23] MEDS: RIVAROXABAN 15 MG TABLET PO SCH ×2 (12:54→19:03)
[2018-11-23] MEDS: LACTOBACILLUS RHAMNOSUS GG 1 EACH CAP.SPRINK PO SCH ×2 (12:54→17:45)
[2018-11-23] MEDS ORDERED: CALAMINE 118 ML BOTTLE TP PRN (15:00)
[2018-11-23] MEDS ORDERED: JEVITY 1.2 CAL 1,000 ML BOTTLE GT PRN (15:02)
--- NOTE | 2018-11-23 15:42 | NUR ---
RN NOTES 1030-PATIENT BACK FROM OR, S/P PEG PLACEMENT, NO SIGN OF PAIN, PEG TUBE SITE NOTED DRY, NO BLEED. POSITIONED HER FOR COMFORT AND SAFETY. 1200-SPECIMEN FOR SCRAPING COLLECTED ORDERED. 1400
--- NOTE | 2018-11-23 15:44 | NUR ---
1430-DR. CRYSTAL NOTIFIED OF THE K RESULTS, 40 MEQ GIVEN, WITH ORDERS TO D/C K NE.
[2018-11-23 16:00] VITALS: BP 92/55
--- NOTE | 2018-11-23 18:55 | NUR ---
RN NOTES 1600-PATIENT MEDICATED FOR PAIN SHE GRIMACES AND UNEASY, RUBBING HER RIGHT ARM TO HER SIDE ( ITCHING), CALAMINE LOTION ALSO APPLIED ON SKIN.PATIENT HAD LARGE STOOLS, PERICARE DONE. REPOSITIONED FOR COMFORT AND SAFETY 1800-PATIENT ASLEEP, NO SIGN OF PAIN. DR. CRYSTAL WAS NOTIFIED OF SCRATCH TEST.
--- NOTE | 2018-11-23 19:30 | NUR ---
MS RN OPENING NOTES RECEIVED PT ON BED. A/O X 1. ON 2L NASAL CANNULA, NO RESPIRATORY DISTRESS NOTED. IV ACCESS ON ROBBIE MIDLINE WITH D5 1/2NS @ 75CC/HR RUNNING WELL, NO SIGH OF INFILTRATION.FEEDING TUBE RUNNING 30ML/HR GOAL IS 60ML/HR. PANTOJA CATH DRAINING YELLOW URINE. HEAD OF BED ELEVATED. SIDE RAILS UP. CALL LIGHT WITHIN REACH. BED ALARM ON. WILL CONTINUE TO MONITOR PT CLOSELY.
--- NOTE | 2018-11-23 19:41 | NUR ---
RN NOTES PATIENT APPEARS COMFORTABLE. REPORT GIVEN TO RN FOR FURTHER CARE
[2018-11-23 20:00] VITALS: BP 146/71
[2018-11-23] MEDS ORDERED: PERMETHRIN 5% CRM 60 GM TUBE TP ONE (20:00)
[2018-11-23] MEDS: INSULIN REGULAR, HUMAN 100 UNIT/ML 3 ML VIAL SQ PRN (21:37)
--- NOTE | 2018-11-23 22:00 | NUR ---
MS RN NOTES, RAISED FEEDING FROM 30 TO 40 ML/HR, GOAL IS 60ML/HR. WILL CONTINUE TO MONITOR
[2018-11-24] MEDS: BLOOD SUGAR DIAGNOSTIC 1 EACH STRIP IN SCH ×4 (01:19→12:34)
--- NOTE | 2018-11-24 02:00 | NUR ---
MS RN NOTES RAISED G TUBE TO 50ML/HR TOLERATED WELL. WILL CONTINUE TO MONITOR
[2018-11-24 04:00] VITALS: BP 130/63
[2018-11-24] MEDS: INSULIN REGULAR, HUMAN 100 UNIT/ML 3 ML VIAL SQ PRN (05:39)
[2018-11-24 06:35] LABS: CARBON DIOXIDE 17 mmol/L (21-32); CHLORIDE 106 mmol/L (98-107); CREATININE 1.7 mg/dL (0.6-1.3); GLUCOSE 145 mg/dL (74-106); POTASSIUM 3.9 mmol/L (3.5-5.1); SODIUM SERUM 140 mmol/L (136-145); UREA NITROGEN, BLOOD 20 mg/dL (7-18)
[2018-11-24 06:54] LABS: BASOPHILS % (AUTO) 0.1 % (0.0-2.0); EOSINOPHILS % (AUTO) 0.1 % (0.0-6.0); HEMATOCRIT 44 % (33-45); HEMOGLOBIN 14.8 g/dL (11.5-14.8); LYMPHOCYTES # (AUTO) 1.5 /CMM (0.8-4.8); LYMPHOCYTES % (AUTO) 8.6 % (20.0-44.0); MEAN CORPUSCULAR HGB CONC 34 g/dl (31.0-36.0); MEAN CORPUSCULAR VOLUME 95 fL (82-100); MONOCYTES # (AUTO) 0.4 /CMM (0.1-1.30); MONOCYTES % (AUTO) 2.3 % (2.0-12.0); NEUTROPHILS # (AUTO) 15.7 /CMM (1.8-8.9); NEUTROPHILS % (AUTO) 88.9 % (43.0-81.0); PLATELET COUNT (AUTO) 294 /CMM (150-450); RED BLOOD CELL COUNT(AUTO) 4.63 MIL/uL (4.0-5.2); WHITE BLOOD COUNT (AUTO) 17.6 K/uL (4.3-11.0)
--- NOTE | 2018-11-24 07:10 | NUR ---
RN INITIAL NOTES PATIENT IN BED, NON VERBAL OPENS EYES. ON 2L NC, NO SOB NOTED. NO SIGNS OF ANY PAIN. HAS PANTOJA CATH WITH CLEAR AND YELLOW URINE. HAS GTF WITH JEVITY RUNNING AT 60 ML/HR, 60 IS THE GOAL. NO RESIDUAL NOTED. HAS LEFT UA MIDLINE, RIGHT HAND AND LEFT HAND #20 ALL SALINE LOCKED. PER NOC SHIFT, ELEMITE CREAM WAS GIVEN AT 1999. WILL GIVE BED BATH AFTER 12HRS. BED LOCKED AND IN LOWEST POSITION. CALL LIGHT WITHIN REACH. WILL CONTINUE TO MONITOR
--- NOTE | 2018-11-24 07:15 | NUR ---
MS RN OPENING NOTES PATIENT IN BED SLEEPING. A/O X 1. ON 2L NASAL CANNULA, NO RESPIRATORY DISTRESS NOTED. IV ACCESS ON ROBBIE MIDLINE IV RIGHT HAND AND LEFT HAND, NO SIGH OF INFILTRATION. FEEDING TUBE RUNNING 60ML. PANTOJA CATH DRAINING YELLOW URINE. HEAD OF BED ELEVATED. SIDE RAILS UP. CALL LIGHT WITHIN REACH. BED ALARM ON. WILL ENDORSE TO AM RN FOR KADY.
[2018-11-24 08:00] VITALS: BP 133/68
[2018-11-24] MEDS: LACTOBACILLUS RHAMNOSUS GG 1 EACH CAP.SPRINK PO SCH (08:14)
[2018-11-24] MEDS: FAMOTIDINE/PF INJ 20 MG/2 ML VIAL IV SCH (08:14)
[2018-11-24] MEDS: RIVAROXABAN 15 MG TABLET PO SCH (08:15)
--- NOTE | 2018-11-24 10:00 | NUR ---
RN NOTE DR BOUDREAUX AT BEDSIDE, NEW ORDERS CXR, URINE AND BLOOD CX. PATIENT HAS PRODUCTIVE COUGH, RAISED THE HOB AND SUCTIONED THE PATIENT.
[2018-11-24] MEDS ORDERED: CEFTRIAXONE 1 G in IV D5W 50 ML IV SCH (11:00)
[2018-11-24] MEDS ORDERED: FLUCONAZOLE IN NS 100 MG in PREMIX 1 EA IV SCH ×2 (12:00)
[2018-11-24 13:10] LABS: BAND % (MANUAL) 27 % (0.0-5.0); MONOCYTES % (MANUAL) 2 % (0-11.0)
[2018-11-24 13:11] LABS: LYMPHOCYTES % (MANUAL) 11 % (16-48); NEUTROPHILS % (MANUAL) 60 (42-76)
--- NOTE | 2018-11-24 15:15 | NUR ---
PATIENT ON CODE BLUE,NOTIFIED DAUGHTER BIGG AND SON JOSIAH VIA PHONE.
--- NOTE | 2018-11-24 15:38 | NUR ---
PATIENT S/P CPR,PRONOUNCED BY DR. DUNCAN,DAUGHTER BIGG NOTIFIED AND PER DAUGHTER NO MORTUARY YET,INFORMED WILL SEND BODY TO MORE FOR NOW AND ONCE THEY HAVE SELECTED MORTUARY OF CHOICE THEY CAN PICKUP BODY IN [place].NURSING SALON COORDINATOR MADE AWARE.
--- NOTE | 2018-11-24 15:45 | NUR ---
CODE BLUE NOTE FOUND PATIENT PALE WITH NON PALPABLE PULSE. CODE BLUE CALLED AT 1515. PATIENT HAS A LEFT UA MIDLINE. FIRST EPI GIVEN AT 1517, 1520, 1523, 1526, 1529, 1532, 1535. 7 EPIS GIVEN. NGT INSERT BY ARNALDO, HIGHWAY LANDSCAPE ARCHITECT AT 1527. INTUBATED BY DR DUNCAN AT 1519. SIZE 7 1/2, 21 ON LIP. COLOR CHANGE SEEN AT 1523. BLOOD SUGAR 120 AT 1522 BY JORGE L CHAVIRA RN. ASYSTOLE THROUGHOUT THE CODE. HR WAS 125 AND SPO2 CONSISTENT AT AROUND 35-37%. AFTER 23 MINUTES OF CODE, DR DUNCAN ANNOUNCED TIME OF AT 1538. DR BOUDREAUX, PRIMARY DOCTOR FOR TODAY WAS MADE AWARE. HOSPITALISTS AT BEDSIDE: JAMAR ICU CN, PRICILLA PATHOLOGY SECRETARY/TRANSCRIPTIONIST, ARNALD[address] LANDSCAPE ARCHITECT, [address] LANDSCAPE ARCHITECT, KRISTEN CHAVIRA RN, JORGE L CHAVIRA RN, FEI RT, JIMENA RT, TING FROM PHARMACY, KACEY GONZALEZ AND MYSELF, PRIMARY NURSE.
[2018-11-24] MEDS ORDERED: EPINEPHRINE (1:10,000) SYRINGE 1 MG/10 ML DISP.SYRIN IVP ONE (16:01)
--- NOTE | 2018-11-24 16:01 | NUR ---
RN NOTE CALLED [facility], TALKED TO JOAQUIN. REFERRAL # [id number]
--- NOTE | 2018-11-24 17:28 | NUR ---
RN NOTE POST MORTEM CARE DONE. ALL TUBES REMOVED. BODY SENT TO THE [place]. ALL PAPERWORK GIVEN TO THE CONVERSION DEVELOPER
== END 2018-11-24 15:38 | disposition expired | DRG 871 ==
LOC: ER 18:05 → ICU 20:36 → TELE1 11-17 13:35 → MEDSG1 11-18 08:30 → ICU 11-24 15:21 → MEDSG1 11-24 15:32
PROVIDERS: ADMIT Student in an Organized Health Care Education/Training Program; ATTEND Student in an Organized Health Care Education/Training Program
PROC: 05H633Z Insertion of Infusion Device into Left Subclavian Vein, Percutaneous Approach (ICD-10-PCS; 2018-11-20)
PROC: 0DH63UZ Insertion of Feeding Device into Stomach, Percutaneous Approach (ICD-10-PCS; principal; 2018-11-23)
PROC: 5A12012 Performance of Cardiac Output, Single, Manual (ICD-10-PCS; 2018-11-24)
PROC: 0BH18EZ Insertion of Endotracheal Airway into Trachea, Via Natural or Artificial Opening Endoscopic (ICD-10-PCS; 2018-11-24)
DX: A41.9 Sepsis, unspecified organism (principal); G93.41 Metabolic encephalopathy; N17.0 Acute kidney failure with tubular necrosis; J69.0 Pneumonitis due to inhalation of food and vomit; J96.01 Acute respiratory failure with hypoxia; E44.0 Moderate protein-calorie malnutrition; N39.0 Urinary tract infection, site not specified; E11.52 Type 2 diabetes mellitus with diabetic peripheral angiopathy with gangrene; D68.59 Other primary thrombophilia; I69.354 Hemiplegia and hemiparesis following cerebral infarction affecting left non-dominant side; B86 Scabies; I10 Essential (primary) hypertension; K21.9 Gastro-esophageal reflux disease without esophagitis; E66.9 Obesity, unspecified; Z68.30 Body mass index [BMI] 30.0-30.9, adult; Z86.718 Personal history of other venous thrombosis and embolism; Z86.711 Personal history of pulmonary embolism; E86.0 Dehydration; E03.9 Hypothyroidism, unspecified; D72.829 Elevated white blood cell count, unspecified; E88.09 Other disorders of plasma-protein metabolism, not elsewhere classified; E11.9 Type 2 diabetes mellitus without complications; R62.7 Adult failure to thrive; R13.10 Dysphagia, unspecified; E87.5 Hyperkalemia
CPT/HCPCS: 36415; 36600; 43246; 71045-TC; 80048-TC; 80061-TC; 80076-TC; 80202-TC; 81000-TC; 82803-TC; 82962-TC; 83605-TC; 83735-TC; 84100-TC; 84132-TC; 84443-TC; 84484-TC; 85025-TC; 85610-TC; 85730-TC; 87040-TC; 87070-TC; 87081-TC; 87086-TC; 87186-TC; 92526; 92611-TC; 92950-TC; 93970-TC; 94799-TC; A4216; A4217; C9113; G0378; J0171; J0690; J0696; J1450; J1644; J1815; J1940; J2405; J2543; J2704; J3370; J3475; J3480; J3490; J7030; J7042; J7050; J7060